=== PATIENT | male | born 1970 | race African-American/Black ===

== ENCOUNTER 2022-09-12 07:57 | Outpatient (REF) | payer MEDICAID, SELFPAY ==
[2022-09-12 08:23] LABS: MANUAL DIFF FLAG NO
[2022-09-12 09:03] LABS: Basophils Absolute Auto 0.1 X10*3/uL (0.0-0.2); Basophils Percent Auto 1.1 % (0-2); Eosinophils Absolute Auto 0.2 X10*3/uL (0.0-0.4); Eosinophils Percent Auto 2.4 % (0-4); Hematocrit 53.4 % (42.0-52.0); Hemoglobin 18.2 g/dl (14.0-18.0); Imm Gran Abs Auto 0.06 X10*3/uL (0.00-0.03); Imm Gran Pct Auto 0.6 % (0.0-0.4); Lymphocytes Absolute Auto 3.1 X10*3/uL (1.2-4.9); Lymphocytes Percent Auto 30.6 % (20-40); Mean Corpuscular HGB Conc 34.1 g/dl (31.0-36.0); Mean Corpuscular Hemoglobin 29.7 pg (27.0-33.0); Mean Corpuscular Volume 87.3 fL (80.0-98.0); Mean Platelet Volume 9.6 fL (9.4-12.4); Monocytes Absolute Auto 0.9 X10*3/uL (0.1-1.2); Monocytes Percent Auto 9.1 % (2-11); Neutrophils Absolute Auto 5.7 x10*3/uL (2.0-8.3); Neutrophils Percent Auto 56.2 % (45-73); Platelet Count 305 X10*3/uL (160-400); Red Blood Count 6.12 X10*6/uL (4.60-5.80); Red Cell Distribution Width 13.2 % (11.0-16.0); White Blood Count 10.1 X10*3/uL (4.8-10.8)
[2022-09-12 10:02] LABS: Alanine Aminotransferase 20 U/L (0-40); Albumin Level 4.6 g/dL (3.5-5.0); Alkaline Phosphatase 70 U/L (39-117); Anion Gap 14 (12-20); Aspartate Amino Transferase 14 U/L (5-37); Bilirubin Total 0.5 mg/dL (0.0-1.0); Blood Urea Nitrogen 19 mg/dL (9-16); Calcium 9.9 mg/dL (8.4-10.2); Carbon Dioxide 28 mmol/L (22-29); Chloride 102 mmol/L (96-108); Cholesterol 229 mg/dL; Estimated Glomerular Filt Rate > 60; Glucose Random 81 mg/dL (60-115); HDL Cholesterol 45 mg/dL; LDL Cholesterol Calculated 142 mg/dl; Potassium 4.5 mmol/L (3.3-5.1); Sodium 139 mmol/L (135-145); Total Protein 7.4 g/dL (6.5-8.0); Triglycerides 210 mg/dL
[2022-09-12 10:14] LABS: HBc Num1 0.11 S/CO (0.00-0.79); HBsAGNum1 0.27 S/CO (0.00-0.99); Hepatitis A Antibody IgM 0.23 Index (0-0.79); Hepatitis B Core Antibody Nonreactive (Nonreactive); Hepatitis B Surface Antigen Negative (Negative); ~HepC Num1 0.08 S/CO (0.00-0.79); ~Hepatitis A Antibody IgM Nonreactive (Nonreactive); ~Hepatitis B Surface Antibody NONREACTIVE (Nonreactive); ~Hepatitis C Antibody Nonreactive (Nonreactive)
[2022-09-12 10:20] LABS: Prostate Specific Antigen Scr 0.82 ng/mL (<0.05-4.0); Thyroid Stimulating Hormone 2.13 uIU/mL (0.32-4.0)
== END 2022-09-12 07:58 | disposition home or self-care (01) ==
LOC: HO.LAB 07:57
PROVIDERS: PCP Internal Medicine; Visit Provider Internal Medicine
DX: Z00.00 Encounter for general adult medical examination without abnormal findings (principal); Z12.5 Encounter for screening for malignant neoplasm of prostate; F11.11 Opioid abuse, in remission; F32.2 Major depressive disorder, single episode, severe without psychotic features; Z72.0 Tobacco use
CPT/HCPCS: 36415; 80053; 80061; 84153; 84443; 85025; 86704; 86706; 86709; 86803; 87340

== ENCOUNTER 2022-12-06 14:16 | Outpatient (REF) | payer MEDICAID, SELFPAY ==
[2022-12-06 15:16] LABS: MANUAL DIFF FLAG NO
[2022-12-06 16:20] LABS: Basophils Absolute Auto 0.1 X10*3/uL (0.0-0.2); Basophils Percent Auto 1.3 % (0-2); Eosinophils Absolute Auto 0.5 X10*3/uL (0.0-0.4); Eosinophils Percent Auto 4.6 % (0-4); Hematocrit 43.6 % (42.0-52.0); Hemoglobin 14.7 g/dl (14.0-18.0); Imm Gran Abs Auto 0.17 X10*3/uL (0.00-0.03); Imm Gran Pct Auto 1.6 % (0.0-0.4); Lymphocytes Absolute Auto 3.7 X10*3/uL (1.2-4.9); Lymphocytes Percent Auto 34.3 % (20-40); Mean Corpuscular HGB Conc 33.7 g/dl (31.0-36.0); Mean Corpuscular Hemoglobin 29.9 pg (27.0-33.0); Mean Corpuscular Volume 88.8 fL (80.0-98.0); Mean Platelet Volume 9.8 fL (9.4-12.4); Monocytes Absolute Auto 1.1 X10*3/uL (0.1-1.2); Monocytes Percent Auto 10.2 % (2-11); Neutrophils Absolute Auto 5.1 x10*3/uL (2.0-8.3); Platelet Count 322 X10*3/uL (160-400); Red Blood Count 4.91 X10*6/uL (4.60-5.80); Red Cell Distribution Width 13.8 % (11.0-16.0); White Blood Count 10.7 X10*3/uL (4.8-10.8)
[2022-12-06 16:48] LABS: Alanine Aminotransferase 34 U/L (0-40); Albumin Level 4.2 g/dL (3.5-5.0); Alkaline Phosphatase 75 U/L (39-117); Anion Gap 13 (12-20); Aspartate Amino Transferase 23 U/L (5-37); Bilirubin Total 0.4 mg/dL (0.0-1.0); Blood Urea Nitrogen 13 mg/dL (9-16); C Reactive Protein 5.48 mg/dL (< or = 0.50); Carbon Dioxide 31 mmol/L (22-29); Chloride 102 mmol/L (96-108); Estimated Glomerular Filt Rate > 60; Glucose Random 89 mg/dL (60-115); Potassium 4.7 mmol/L (3.3-5.1); Sodium 141 mmol/L (135-145)
== END 2022-12-06 14:17 | disposition home or self-care (01) ==
LOC: HO.LAB 14:16
PROVIDERS: PCP Internal Medicine; Visit Provider Physician Assistant
DX: R10.9 Unspecified abdominal pain (principal); K58.9 Irritable bowel syndrome, unspecified
CPT/HCPCS: 36415; 80053; 85025; 86140; 99202

== ENCOUNTER 2022-12-10 09:03 | Outpatient (REF) | payer MEDICAID, SELFPAY ==
--- NOTE | ~2022-12-10 | CT_ITS ---
EXAMINATION: CT ABDOMEN AND PELVIS WITH CONTRAST CLINICAL INFORMATION: Unspecified abdominal pain COMPARISON: None available. TECHNIQUE: Multidetector volumetric images were obtained from the superior aspect of the liver through the pubic symphysis following administration 85 mL of Omnipaque 350 intravenous contrast. Sagittal and coronal reformatted images were obtained on the technologist's workstation. Oral contrast: Yes This CT examination was performed using dose optimization techniques as appropriate, variously including the following: *Automated exposure control *Adjustment of mA and/or kV according to patient size (this includes techniques or standardized protocols for targeted exams where dose is matched to indication/reason for exam; i.e. extremities or head) *Use of iterative reconstruction technique DLP: 423 mGy-cm FINDINGS: LUNG BASES: There is platelike atelectasis right lung base. The heart size is normal. LIVER, GALLBLADDER, AND BILIARY TREE: The liver is normal in size, shape, and attenuation. No focal hepatic lesion or biliary ductal dilatation is present. The gallbladder is unremarkable with no evidence of radiopaque gallstones, gallbladder wall thickening, or obvious pericholecystic inflammatory changes. PANCREAS: Unremarkable. SPLEEN: Unremarkable. ADRENAL GLANDS: Unremarkable. KIDNEYS AND URETERS: The kidneys are normal in size, shape, and attenuation. No hydronephrosis, hydroureter, or calculi seen. No perinephric stranding. BLADDER: Unremarkable. GASTROINTESTINAL TRACT: There is scattered stool, gas and contrast seen throughout the colon without distention. The small bowel loops are normal caliber. Appendix is normal caliber. No free fluid or free air seen. ABDOMINAL WALL: No significant hernia is appreciated. LYMPH NODES: Normal. VASCULAR: Unremarkable. PELVIC VISCERA: The prostate gland is mildly enlarged with central gland calcification. No free fluid seen. OSSEOUS STRUCTURES: No aggressive lytic or sclerotic process seen. Mild degenerative disc changes L5-S1 disc levels is noted. CT/CT abdomen pelvis w IV con IMPRESSION: 1. No acute intra-abdominal process seen. 2. Mild constipation. Fleischner guidelines were followed.
[2022-12-10] MEDS: iohexoL 350 MG/ML 100 ML INFUS..BTL 85 ML IV (11:45)
== END 2022-12-10 09:04 | disposition home or self-care (01) ==
LOC: HO.CT 09:03
PROVIDERS: PCP Internal Medicine; Visit Provider Physician Assistant
DX: R10.9 Unspecified abdominal pain (principal)
CPT/HCPCS: 74177; Q9967

== ENCOUNTER → 2023-01-07 12:14 | Outpatient (BNVA) | payer MEDICAID, SELFPAY | PROVIDERS: PCP Internal Medicine; Visit Provider Physician Assistant | DX: Z12.11 Encounter for screening for malignant neoplasm of colon (principal); K21.9 Gastro-esophageal reflux disease without esophagitis; R12 Heartburn | CPT/HCPCS: 99212 ==

== ENCOUNTER 2023-05-10 14:00 | Outpatient (RCR) | payer MEDICAID, SELFPAY ==
--- NOTE | 2023-04-16 14:43 | MHC.PT.EP ---
[facility] [place] Office [place] Office [place] Office [address] Viraj Amezcua [address] [phone] F: [phone] F: [phone] F: [phone] F: [phone] Physical Therapy Plan of Care Date of Evaluation: 04/16/23 Date of Surgery: n/a Diagnosis: low back pain Assessment: Patient is a 52 year old male presenting to PT with complaints of pain in his low back. Pt reports onset of pain began 1 year ago due to insidious onset. He presents today with impairments in pain, lumbar ROM, hip strength, core strength. Pt's current occupation is none, with baseline physical activities including ADLs. Pt expresses fpc goal of reducing pain, and is motivated to work towards this in PT. Clinical presentation today is most consistent with signs and sx associated with low back pain and pt will benefit from skilled PT 2 week x 4 weeks to address the following problems and impairments noted upon evaluation: pain, lumbar ROM, hip strength, core strength. These problems limit the patient with the following functional activities: ADLs. The prescribed treatment plan of care is medically necessary. 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 Pt was educated on HEP, role of PT, prognosis, POC. Frequency and Duration: The patient will be seen 2 x week x 4 weeks Short Term Goals: Pt will demonstrate centralization of pain to low back in 2 weeks. Pt will demonstrate improved hip MMT strength by 1/3 grade in 2 weeks for improved lumbopelvic stability. Pt will demonstrate ability to move through available lumbar range with minimal pain in 2 weeks. Fpc Goals: Pt will demonstrate improved Sharon score by 10% in 4 weeks for improved functional mobility. Pt will demonstrate ability to complete ADLs with min to no pain in 4 weeks for return to PLOF. Treatment Plan: Modalities to reduce pain, spasms and effusion. Manual therapy to restore motion and function. Therapeutic exercise to improve strength and flexibility. Neuromuscular re-education for posture and balance. Therapeutic activities to return to functional activities of daily living. Electronically signed by: Trena Landrum, PT, DPT, ATC Please sign and return to therapist. Thank you for your referral.
--- NOTE | 2023-05-24 14:19 | MHC.PT.DC ---
[facility] [place] Office [place] Office [place] Office [address] Ame[address]ua [address] [phone] F: [phone] F: [phone] F: [phone] F: [phone] Physical Therapy Discharge Report Diagnosis: low back pain Date of Surgery: n/a Date of Evaluation: 04/16/23 Date of Discharge: 05/24/23 Treatments to Date: 3 Cancellations to Date: 2 No Shows to Date: 3 Discharge Status: Visit Non-compliance Discharge Summary: Pt has failed to comply with [facility] attendance policy and no showed 3 appointments since start of care. Pt to be d/c per policy. Electronically signed by: Trena Landrum PT, DPT, ATC Please sign and return to therapist. Thank you for your referral.
== END 2023-05-24 14:19 | disposition home or self-care (01) ==
LOC: HO.PTCHIC 14:00
PROVIDERS: PCP Internal Medicine; Visit Provider Internal Medicine
DX: M54.50 Low back pain, unspecified (principal)
CPT/HCPCS: 97110; 97140; 97161

== ENCOUNTER 2023-05-29 08:38 | Outpatient (REF) | payer MEDICAID, SELFPAY ==
[2023-05-29 10:14] LABS: Rheumatoid Factor < 13.0 IU/mL (<15.0)
[2023-05-29 10:17] LABS: Cholesterol 173 mg/dL (<200); HDL Cholesterol 38 mg/dL (>40); LDL Cholesterol Calculated 112 mg/dL (<100); Triglycerides 116 mg/dL (<150)
[2023-05-29 10:37] LABS: Erythrocyte Sedimentation Rate 2 MM/HR (0-15)
[2023-05-30 18:18] LABS: CRP High Sensitivity 2.3 mg/L
[2023-06-02 10:38] LABS: Anti Nuclear Antibody Screen NEGATIVE (NEGATIVE)
== END 2023-05-29 08:39 | disposition home or self-care (01) ==
LOC: HO.LAB 08:38
PROVIDERS: PCP Internal Medicine; Visit Provider Internal Medicine
DX: E78.00 Pure hypercholesterolemia, unspecified (principal); F17.211 Nicotine dependence, cigarettes, in remission; M26.621 Arthralgia of right temporomandibular joint; R30.0 Dysuria; R79.82 Elevated C-reactive protein (CRP)
CPT/HCPCS: 36415; 80061; 85652; 86038; 86141; 86431

== ENCOUNTER 2023-06-19 10:47 | Day surgery (SDC) | payer MEDICAID, SELFPAY ==
[2023-06-17 15:49] VITALS: BMI 33.5
--- NOTE | 2023-06-18 10:16 | P.CONAN_ITS ---
Documented by User: Deidra Solares NP 06/18/23 10:16 HPI - Anesthesia Eval Consult details Narrative: 52yo M for Upper Endoscopy and Colonoscopy PMFSH Active Problems Active Problems: All Active Problems (Updated 01/07/23 @ 12:43 by Sepideh Hess PA-C) Acid reflux (Acute) Waterbrash symptom (Acute) Abdominal pain (Acute) Encounter for screening colonoscopy (Acute) Surgical History Surgical History History of facial surgery Social History Social History Household Members: Spouse Alcohol intake: never Patient Tobacco Use Status: Former Tobacco user Meds Allergies Allergy/AdvReac Type Severity Reaction Status Date / Time diphenhydramine Allergy Severe Chest Pain Verified 01/07/23 12:17 [From [facility]] Home Medications Medication Instructions Recorded Confirmed Last Taken Type bupropion HCl 150 mg tablet,12 hr 150 mg PO DAILY 12/06/22 01/07/23 Unknown History sustained-release (Wellbutrin SR) sertraline 25 mg tablet (Zoloft) 25 mg PO DAILY 12/06/22 01/07/23 Unknown History trazodone 100 mg tablet 100 mg PO DAILY 12/06/22 01/07/23 Unknown History Exam Height,Weight and Vital Signs: Height 5 ft 4 in Weight 88.451 kg Assessment and Plan Assessment Anesthesia Assessment: Chart Reviewed Documented by User: Holger Reeder MD 06/19/23 09:25 PMFSH Family History Family history of problems with anesthesia: No Surgical History Surgical History History of facial surgery History of Problems with Anesthesia: No Social History Social History Household Members: Spouse Alcohol intake: never Patient Tobacco Use Status: Former Tobacco user Meds Allergies Allergy/AdvReac Type Severity Reaction Status Date / Time diphenhydramine Allergy Severe Chest Pain Verified 01/07/23 12:17 [From [facility]] Home Medications Medication Instructions Recorded Confirmed Last Taken Type bupropion HCl 150 mg tablet,12 hr 150 mg PO DAILY 12/06/22 01/07/23 Unknown History sustained-release (Wellbutrin SR) sertraline 25 mg tablet (Zoloft) 25 mg PO DAILY 12/06/22 01/07/23 Unknown History trazodone 100 mg tablet 100 mg PO DAILY 12/06/22 01/07/23 Unknown History Exam Airway Mallampati Class: II TM Dist: >3cm Neck ROM: Full Partial: Upper Assessment and Plan Assessment Anesthesia Assessment: Anesthesia Plan Discussed Final Anesthetic Review Family History of Problems with Anesthesia: No History of Problems with Anesthesia: No NPO: Yes ASA Class: II Final Preanesthetic Review: No Changes in Pt Med Stat, Meds/Allgs Chart Reviewed, Consent Obtained/Reviewed and Anes Risks/Benef Reviewed Patient Risk: Low Procedure Risk: Low Anesthetic Plan Anesthetic Plan: MAC: Disposition: Standard PACU
--- NOTE | 2023-06-19 10:27 | PC.NURSE ---
Patient did not arrive for procedure. Calls placed, no answer
[2023-06-19 11:36] VITALS: BMI 33.4
[2023-06-19 11:40] VITALS: BMI 33.4
[2023-06-19 11:50] VITALS: BP 116/59; PULSE 60; RESP 18; TEMP 36.4; O2SAT 95
[2023-06-19] MEDS: Lactated Ringers 1,000 ML 100 ML IVCONT (11:55)
--- NOTE | 2023-06-19 12:18 | HO.ANESPROP2 ---
PMFSH Active Problems Active Problems: All Active Problems (Updated 01/07/23 @ 12:43 by Sepideh Hess PA-C) Acid reflux (Acute) Waterbrash symptom (Acute) Abdominal pain (Acute) Encounter for screening colonoscopy (Acute) Family History Family history of problems with anesthesia: No Surgical History Surgical History History of facial surgery History of Problems with Anesthesia: No Social History Social History Household Members: Spouse Alcohol intake: never Patient Tobacco Use Status: Current everyday Tobacco user Tobacco use type: Cigarette Smoked in Last 30 Days: Yes Patient Interested in Nicotine Replacement: No Patient Given Instructions on How to Stop Smoking: No Use of substances other than those prescribed or required for medical reasons: Yes Substance Use Frequency: Monthly Are you DNR?: No Advance Directives: No Advance Directives Information Provided: Yes Meds Allergies Allergy/AdvReac Type Severity Reaction Status Date / Time diphenhydramine Allergy Severe Chest Pain Verified 01/07/23 12:17 [From [facility]] Active Medications: Current Medications Lactated Ringer's (Lr) 1,000 mls @ 100 mls/hr IVCONT .Q10H RAFI Last Admin: 06/19/23 11:55 Dose: 100 mls/hr Home Medications Medication Instructions Recorded Confirmed Last Taken Type bupropion HCl 150 mg tablet,12 hr 150 mg PO DAILY 12/06/22 01/07/23 Unknown History sustained-release (Wellbutrin SR) sertraline 25 mg tablet (Zoloft) 25 mg PO DAILY 12/06/22 01/07/23 Unknown History trazodone 100 mg tablet 100 mg PO DAILY 12/06/22 01/07/23 Unknown History Exam Height,Weight and Vital Signs: Height 5 ft 4 in Weight 88.36 kg Last Vital Signs Temp 97.6 F 06/19/23 11:50 Pulse 60 06/19/23 11:50 Resp 18 06/19/23 11:50 BP 116/59 L 06/19/23 11:50 Pulse Ox 95 06/19/23 11:50 O2 Del Method Room Air 06/19/23 11:50 Airway Mallampati Class: III TM Dist: >3cm Neck ROM: Full Assessment and Plan Assessment Anesthesia Assessment: Anesthesia Plan Discussed and Chart Reviewed Final Anesthetic Review Family History of Problems with Anesthesia: No History of Problems with Anesthesia: No NPO: Yes ASA Class: II and III Final Preanesthetic Review: No Changes in Pt Med Stat, Meds/Allgs Chart Reviewed, Consent Obtained/Reviewed and Anes Risks/Benef Reviewed Patient Risk: Low Procedure Risk: Low Anesthetic Plan Anesthetic Plan: MAC: Disposition: Standard PACU
--- NOTE | 2023-06-19 12:52 | MHC.SHP ---
Pre-Procedural Eval Section A Date of Service: 06/19/23 Section B Chief Complaint: Gastro-esophageal reflux disease without esophagit Details of Present Illness: colon screening Relevant Family History (Specify if Yes): No Relevant Social History: Tobacco Use Present Medications: see Short Stay Collaborative assessment Medical History: Significant History (gerd, ) History of Previous Operations: Relevant previous surgery/procedure and date(s) (History of facial surgery) Allergies: Allergies Allergy/AdvReac Type Severity Reaction Status Date / Time diphenhydramine Allergy Severe Chest Pain Verified 01/07/23 12:17 [From [facility]] Review of Systems Sugical H&P ROS: Negative: Constitution, Cardiovascular, Respiratory, Neurological, Psychiatric, Hem-Onc, Allergic/Immunologic, Gastrointestinal, Genitourinary, Musculoskeletal, Integumentary, Endocrine and Eyes/Ears/Nose/Throat Exam Surgical H&P Exam: Normal: HEENT, Normal: Heart, Normal: Lungs, Normal: Extremities, Normal: Abdomen, Normal: Skin and Normal: Neurological Plan Diagnosis/Plan: Unchanged I have reviewed the history and physical and performed a pertinent physical examination on my patient. No changes have occurred unless specified. Time Spent With Patient Time: Total time managing care of this patient today ____ minutes.
--- NOTE | 2023-06-19 12:54 | P.OP_ITS ---
Operative Note Operative Note Date of Service: 06/19/23 Narrative: Operative Information Procedure Description: EGD, Colonoscopy Indication: screening and GERD Anesthesia: MAC FLEXIBLE TRANSORAL UPPER GASTROINTESTINAL ENDOSCOPY AND COLONOSCOPY PROCEDURE NOTE UPPER ENDOSCOPY Consent: Indications for the procedure and potential complications of bleeding, perforation, reaction to medications and missed diagnosis were discussed with the patient and informed consent was obtained. Instrument: Olympus GIF H 190 J mid size upper endoscope Monitoring: Vital signs and clinical assessment, continuous EKG monitoring, Pulse oximetry, Carbon Dioxide monitoring and blood pressure monitoring were done throughout the procedure. Procedure: The patient was placed in the left lateral decubitis position and pre-procedure medications were administered and a bite block was placed. The endoscope was inserted into the mouth and advanced under direct vision to the third part of duodenum. A careful inspection was made as the upper endoscope was withdrawn including a retroflexed examination of the proximal stomach; Findings and interventions are described below. Findings: Larynx:normal Esophagus: GE junction at 36 cm, diaphragm hiatus at 38 cm, small sliding hiatal hernia 2 cm noted, bx taken from GEJ, distal and proximal esophagus Stomach: Patchy erythema. Biopsies were obtained. Grade 2 flap valve on retroflexed examination of the cardia. Duodenum: Normal bulb and descending duodenum, Intervention: Biopsies as noted above COLONOSCOPY Instrument: Olympus variable stiffness pediatric scope 190L Colonoscopy Monitoring: Vital signs and clinical assessment, continuous EKG monitoring, Pulse oximetry, Carbon Dioxide monitoring and blood pressure monitoring were done throughout the procedure. Colon withdrawal time was 12 minutes. Procedure: The patient was placed in the left lateral decubitis position and pre-procedure medications were administered. After a digital rectal examination of the ano-rectum, the video colonoscope was inserted into the rectum and advanced through the colon to the cecum/TI. The colonoscope was slowly withdrawn in a retrograde panoramic fashion and the colon mucosa was carefully examined including a retroflexed view of the rectum. Findings and interventions are described below. Procedure Difficulty:moderate Findings: Terminal Ileum-not intubated Cecum:normal Ascending Colon: normal Transverse Colon - x 2 sessile polyps 10-12 mm removed with cold snare Descending Colon:normal Sigmoid Colon: normal Rectum: Retroflexion with small internal hemorrhoids, grade I Anorectum - normal Colon preparation: [place] Bowel Preparation Scale Right colon; 1-2 Transverse colon: 2 Left colon; 2 (0 = Unprepared colon segment with mucosa not seen due to solid stool that cannot be cleared. 1 = Portion of mucosa of the colon segment seen, but other areas of the colon segment not well seen due to staining, residual stool and/or opaque liquid. 2 = Minor amount of residual staining, small fragments of stool and/or opaque liquid, but mucosa of colon segment seen well. 3 = Entire mucosa of colon segment seen well with no residual staining, small fragments of stool or opaque liquid) Impression and Post Procedure Diagnosis: Endoscopy Findings: gastritis small hiatal hernia Colonoscopy Findings: polyps internal hemorrhoids Plan: Await Pathology results Repeat Colonoscopy in 1-2 years due to polyps and fair prep in some areas or earlier if clinically indicated High fiber diet leaflet avoid straining at stool, epsom salts and sitz bath, anusol supps or cream smoking cessation and gerd precautions Above findings were reviewed with the patient and relevant handouts were provided if indicated.
[2023-06-19 13:53] VITALS: BP 114/70; PULSE 69; RESP 16; TEMP 36.4; O2SAT 97
[2023-06-19 14:08] VITALS: BP 134/83; PULSE 59; RESP 16; TEMP 36.4; O2SAT 99
[2023-06-19 14:23] VITALS: BP 128/84; PULSE 60; RESP 18; TEMP 36.4; O2SAT 99
== END 2023-06-19 15:00 | disposition home or self-care (01) ==
PROVIDERS: PCP Internal Medicine; Visit Provider Internal Medicine Gastroenterology
PROC: (CPT 43239; principal; 2023-06-19 10:00)
DX: K29.70 Gastritis, unspecified, without bleeding (principal); K44.9 Diaphragmatic hernia without obstruction or gangrene; K21.9 Gastro-esophageal reflux disease without esophagitis; R10.32 Left lower quadrant pain; Z12.11 Encounter for screening for malignant neoplasm of colon; D12.3 Benign neoplasm of transverse colon; K64.0 First degree hemorrhoids; F17.210 Nicotine dependence, cigarettes, uncomplicated; Z79.899 Other long term (current) drug therapy
CPT/HCPCS: 43239; 45385; 88305; 88342; J2704

== ENCOUNTER → 2023-06-19 10:47 | Outpatient (BNV) | payer MEDICAID, SELFPAY | PROVIDERS: PCP Internal Medicine; Visit Provider Internal Medicine Gastroenterology | DX: Z12.11 Encounter for screening for malignant neoplasm of colon (principal); K21.9 Gastro-esophageal reflux disease without esophagitis; K29.70 Gastritis, unspecified, without bleeding; D12.3 Benign neoplasm of transverse colon; K64.0 First degree hemorrhoids | CPT/HCPCS: 43239; 45385 ==

== ENCOUNTER 2023-06-24 12:48 | Outpatient (AMB) | payer MEDICAID, SELFPAY ==
--- NOTE | 2023-06-24 12:56 | MHC.OFFVIS ---
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 Denies any past or recent trauma, injury or falls. 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 His back pain is localized to the lower spine and sacral regions with radiation into his right posterior thigh and calf with intermittent tingling and numbness. Denies any weakness, bladder or bowel dysfunction or saddle anesthesia. Patient denies previous spine surgery or injections but is interested to undergo interventional treatments to alleviate his radicular back pain. Abdominal CT scan on 12/10/22 showed mild degenerative disc changes L5-S1 disc levels. His PCP provider ordered lumbar spine MRI but this has not been scheduled yet. Pain affects his daily activities, functioning, sleep, social activities, mood and quality of life. He rates his pain at 8/10. Location Low back pain, right hip that radiates down right leg Duration Chronic pain >1 year due to heavy lifting work in [place] Characteristics of symptom or complaint Aching, throbbing, shooting, sharp, radiating, numbness, tingling Aggravating or associated factors Movements, bending, twisting, lifting, prolonged walking or standing Relieving factors Tylenol, NSAIDs, (Naprosyn, Motrin, diclofenac) hot shower, sitting Treatment PT- made pain worse [facility] Medical History (Updated 06/24/23 @ 20:21 by MARIAM Valenzuela) Essential hypertension Restless leg syndrome High cholesterol Chronic low back pain Depression Sleep apnea Acid reflux Surgical History History of facial surgery Social History (Updated 06/24/23 @ 20:26 by MARIAM Valenzuela) Household Members: Spouse Alcohol intake: never Patient Tobacco Use Status: Current everyday Tobacco user Tobacco use type: Cigarette Substance Use Type: Former Substance User and Heroin Review of Systems Const All systems reviewed & are unremarkable except as noted in HPI and below Reports as per HPI, Denies body aches, Denies chills, Reports difficulty sleeping, Denies fatigue, Denies fever(s), Denies frequent falls, Denies malaise, Reports snoring, Denies weakness and Denies weight loss Resp Reports snoring Neuro Denies frequent falls and Denies weakness Endo Denies fatigue Physical Exam Vital Signs: Last Vital Signs Pulse 70 06/24/23 13:03 BP 130/78 06/24/23 13:03 Pulse Ox 98 06/24/23 13:03 Oxygen Delivery Method Room Air 06/24/23 13:03 BMI result Body Mass Index 34.3 General: Appears afebrile. Alert and oriented. Mood and affect appropriate. Follows and participates in conversation appropriately. Respiratory effort is unlabored. No cough. Able to transition from sit to stand unassisted. Ambulates with bilaterally normal heel strike and toe off. Back/Spine/Pelvis Other: Patient is able to walk and stand on heels and tip toes with no difficulties demonstrating good motor tone. No limping. Can flex forward to 65-75 degrees and extend to 5-10 degrees before experiencing lumbar pain. Demonstrates 5/5 strength of quadriceps bilaterally as well as flexion/dorsiflexion of bilateral feet against resistance. 2+ pedal pulses bilaterally. Seated straight leg rise with dorsiflexion negative bilaterally. +2 patellar and +1 achilles reflexes bilaterally. Facet loading test positive bilaterally. Mike?s, [place], Pelvic compression and Stinchfield tests reproduce right lateral hip pain, but not low back or buttock pain. Mild groin pain with internal hip rotations on the right. Valsalva maneuver negative. Cervical Spine: cervical ROM normal, cervical muscular tenderness and No Cervical spine tenderness Thoracic/Lumbar Spine: thoracic and lumbar spine normal to inspection, No Thoracic/lumbar spine scar(s), Lasegue's sign negative, straight leg raise negative bilaterally, pain with thoraco-lumbar ROM, paraspinal muscle tenderness, No thoracic spinal tenderness and lumbar spinal tenderness (L4-S1) Pelvis: buttock tenderness on the right Sacroiliac joints: on the right tender to palpation and on the left nontender Skin General skin exam: scars (right face) Extrem General: Yes capillary refill normal, Yes no clubbing, cyanosis or edema and Yes no calf tenderness Results Reviewed Results Reviewed: CT scan abdomen pelvis w IV con on 12/10/22 OSSEOUS STRUCTURES: No aggressive lytic or sclerotic process seen. Mild degenerative disc changes L5-S1 disc levels is noted. Assessment & Plan Assessment & Plan (1) Lumbar spondylosis: Code(s): M47.816 - Spondylosis without myelopathy or radiculopathy, lumbar region (2) Right hip pain: Code(s): M25.551 - Pain in right hip (3) Lumbar radiculopathy: Code(s): M54.16 - Radiculopathy, lumbar region (4) Chronic low back pain: Code(s): M54.50 - Low back pain, unspecified; G89.29 - Other chronic pain (5) Light cigarette smoker (1-9 cigarettes per day): Code(s): F17.210 - Nicotine dependence, cigarettes, uncomplicated Plan Lumbar spine and right hip imaging to assess degree of degenerative changes, any subluxation, listhesis, compression fractures or pars defects. Pending lumbar spine MRI. Patient has tried NSAIDs, Tylenol, physical therapy, heat therapy with continued symptoms. Patient will return to the clinic to discuss results of the MRI/xray findings when it is done and consider interventional therapy as indicated. Scripts provided for meloxicam prn and gabapentin at bedtime. Side effects and precautions were discussed with patient. Patient is aware not to take other NSAIDs while taking meloxicam, and take it with food and full glass of water. Patient is aware to call if pain worsens or if he develops any red flag symptoms to seek emergency care. Patient denies any cauda equina syndrome symptoms at this time. All questions were answered and the patient is in agreement with the treatment plan. Follow up to review imaging and sooner if needed. Orders: Orders XR lumbar spine 6V w bending Today M47.816 - Spondylosis without myelopathy or radiculopathy, lumbar region XR hip RT w PEL1V Today M25.551 - Pain in right hip, M47.816 - Spondylosis without myelopathy or radiculopathy, lumbar region Medications: New meloxicam Take it with food and full glass of water. Avoid other NSAIDs. 15 mg PO DAILY 30 days PRN 30 tabs 0RF pain M25.551 - Pain in right hip, M47.816 - Spondylosis without myelopathy or radiculopathy, lumbar region, M54.16 - Radiculopathy, lumbar region gabapentin 300 mg PO BEDTIME 30 caps 0RF pain M25.551 - Pain in right hip, M47.816 - Spondylosis without myelopathy or radiculopathy, lumbar region, M54.16 - Radiculopathy, lumbar region Coding Level of Care Code New Pt Level 4 (03431) Diagnoses Lumbar spondylosis M47.816 Right hip pain M25.551 Lumbar radiculopathy M54.16 Chronic low back pain M54.50; G89.29 Light cigarette smoker (1-9 cigarettes per day) F17.210
[2023-06-24 13:03] VITALS: BP 130/78; PULSE 70; O2SAT 98; BMI 34.3
== END 2023-06-24 13:20 | disposition home or self-care (01) ==
PROVIDERS: PCP Internal Medicine; Referring Provider Internal Medicine; Visit Provider Nurse Practitioner Family
DX: M47.816 Spondylosis without myelopathy or radiculopathy, lumbar region (principal); M25.551 Pain in right hip; M54.16 Radiculopathy, lumbar region; M54.50 Low back pain, unspecified; G89.29 Other chronic pain; F17.210 Nicotine dependence, cigarettes, uncomplicated
CPT/HCPCS: 99204

== ENCOUNTER 2023-06-24 12:48 | Outpatient (REF) | payer MEDICAID, SELFPAY ==
--- NOTE | ~2023-06-24 | XR_ITS ---
EXAMINATION: XR LUMBOSACRAL SPINE WITH OBLIQUES CLINICAL INFORMATION: Spondylosis without myelopathy radiculopathy COMPARISON: None available. TECHNIQUE: 7 views of the lumbar spine FINDINGS: 5 nonrib-bearing lumbar-type vertebral bodies. No acute visible fracture or dislocation. Very mild multilevel degenerative changes with osteophyte formation lumbar spine facet arthropathy. Vertebral body heights and disc spaces are otherwise maintained. Posterior elements are intact. Paraspinal soft tissues are unremarkable. Punctate radiodensity adjacent to the right L1 transverse process nonspecific. XR/XR lumbar spine 6V w bending IMPRESSION: 1. No acute visible fracture or dislocation. 2. Very mild multilevel degenerative changes.
--- NOTE | ~2023-06-24 | XR_ITS ---
EXAMINATION: XR HIP, RIGHT CLINICAL INFORMATION: Pain COMPARISON: None available. TECHNIQUE: Two views of the right hip. Single view the pelvis FINDINGS: No acute visible fracture or dislocation. Enthesopathy along the left lesser trochanter. Joint space and alignment are otherwise maintained. Soft tissues are unremarkable XR/XR hip RT w PEL1V IMPRESSION: 1. No acute visible fracture or dislocation. 2. Enthesopathy along the left lesser trochanter.
== END 2023-06-24 12:49 | disposition home or self-care (01) ==
LOC: HO.XRAY 12:48
PROVIDERS: PCP Internal Medicine; Referring Provider Internal Medicine; Visit Provider Nurse Practitioner Family
DX: M47.816 Spondylosis without myelopathy or radiculopathy, lumbar region (principal); M25.551 Pain in right hip; M54.16 Radiculopathy, lumbar region; M54.50 Low back pain, unspecified
CPT/HCPCS: 72114; 73502; 99212

== ENCOUNTER 2023-07-03 08:22 | Outpatient (AMB) | payer MEDICAID, SELFPAY ==
--- NOTE | 2023-07-03 08:25 | A.OFFVIS_ITS ---
Intake Vital Signs 07/03/23 08:30 Height 5 ft 4 in Weight 196 lb 3.382 oz BMI 33.7 BP 135/71 Blood Pressure Location Lt brachial Position Sitting Pulse 69 Intake Visit Reasons: s/p colon Intake Note: [place] presents in the office as a follow up colonoscopy. CC: He states that he is not having any concerns since his procedure. Allergies diphenhydramine [From Benadryl] Allergy (Severe, Verified 01/07/23 12:17) Chest Pain Medication List - Last Reconciled 07/03/23 by Sepideh Hess PA-C atorvastatin 40 mg PO BEDTIME bupropion HCl 150 mg PO QAM buspirone 7.5 mg PO BID gabapentin 300 mg PO BEDTIME hydroxyzine HCl 50 - 100 mg PO BEDTIME meloxicam 15 mg PO DAILY PRN 30 days omeprazole 20 mg PO DAILY ropinirole 3 mg PO BEDTIME sertraline (Zoloft) 25 mg PO DAILY sertraline 200 mg PO QAM HPI HPI Comments History of Present Illness Details A 52 y/o male f/u after EGD colonoscopy- he has acid reflux- omeprazole 20 mg QD- he is a smoker 1ppd, also drinks 3 coffees a day His does say that he smokes a lot during the day as well as drinks coffee, he agreed to her statement He otherwise has no GI issues he has normal bowel pattern Reviewed procedure report, pathology and recommendations He is here today with his , who helps interpret with him No nausea, vomiting hematemesis, hematochezia fever chills PFSH Medical History Essential hypertension Restless leg syndrome High cholesterol Chronic low back pain Depression Sleep apnea Acid reflux Surgical History Hx of colonoscopy History of esophagogastroduodenoscopy (EGD) History of facial surgery Social History Household Members: Spouse Alcohol intake: never Patient Tobacco Use Status: Current everyday Tobacco user Tobacco use type: Cigarette Substance Use Type: Former Substance User and Heroin Review of Systems Const All systems reviewed & are unremarkable except as noted in HPI and below Card Denies chest pain and Denies dyspnea Resp Denies dyspnea GI Denies abdominal pain, Denies change in bowel habits and Reports heartburn Physical Exam Vital Signs: Last Vital Signs Pulse 69 07/03/23 08:30 BP 135/71 07/03/23 08:30 BMI result Body Mass Index 33.7 Const General: cooperative, healthy appearing, comfortable and no acute distress Nutritional Appearance: overweight Orientation/consciousness: patient oriented x3 Limitations: language barrier Resp Effort & Inspection: normal respiratory effort and able to speak in complete sentences Neuro General: patient oriented x3 Results Reviewed Results Reviewed: Findings: Terminal Ileum-not intubated Cecum:normal Ascending Colon: normal Transverse Colon - x 2 sessile polyps 10-12 mm removed with cold snare Descending Colon:normal Sigmoid Colon: normal Rectum: Retroflexion with small internal hemorrhoids, grade I Anorectum - normal Colon preparation: [place] Bowel Preparation Scale Right colon; 1-2 Transverse colon: 2 Left colon; 2 (0 = Unprepared colon segment with mucosa not seen due to solid stool that cannot be cleared. Name: [place] Arnett Age/Sex: 52/M Attending: Azael Baez MD : 1970 Submitted by: Azael Baez MD Copies to: Elisa Ryan MD MR #: [id number] Status: [facility] Collected: 06/19/23 Location: [facility] Received: 06/19/23 Diagnosis A. Stomach, biopsy: Antral-type and oxyntic mucosa with mild chronic inactive inflammation; no Helicobacter organisms seen. B. GE junction, biopsy: - Cardiac-type mucosa with moderate chronic inactive inflammation; no intestinal metaplasia seen. - Squamous mucosa within normal limits. C. Esophagus, distal, biopsy: Squamous epithelium within normal limits; no inflammation seen. D. Esophagus, proximal, biopsy: Squamous epithelium within normal limits; no inflammation seen. E. Colon, transverse, polypectomy: Fragments of tubular adenoma; negative for high-grade dysplasia or carcinoma Endoscopy Findings: gastritis small hiatal hernia Colonoscopy Findings: polyps internal hemorrhoids Plan: Await Pathology results Repeat Colonoscopy in 1-2 years due to polyps and fair prep in some areas or earlier if clinically indicated High fiber diet leaflet avoid straining at stool, epsom salts and sitz bath, anusol supps or cream smoking cessation and gerd precautions Above findings were reviewed with the patient and relevant handouts were provided if indicated. Assessment & Plan Assessment & Plan (1) Hiatal hernia: Code(s): K44.9 - Diaphragmatic hernia without obstruction or gangrene Plan: Reviewed (2) Tubular adenoma: Code(s): D36.9 - Benign neoplasm, unspecified site Plan: Repeat Colonoscopy in 1-2 years due to polyps and fair prep in some areas or earlier if clinically indicated All first-degree relatives begin screening at age 40 (3) Hemorrhoids: Code(s): K64.9 - Unspecified hemorrhoids Plan: High fiber diet leaflet avoid straining at stool, epsom salts and sitz bath, anusol supps or cream (4) Acid reflux: Comment: He is overweight, a smoker as well as fair amount of caffeine daily-certainly contribute to his symptoms Again reviewed procedure report pathology in recommendation Code(s): K21.9 - Gastro-esophageal reflux disease without esophagitis Plan: Reflux precautions reviewed, reinforce lifestyle change Plan Repeat Colonoscopy in 1-2 years due to polyps and fair prep in some areas or earlier if clinically indicated AFDR begin screening at age 40 High fiber diet leaflet avoid straining at stool, epsom salts and sitz bath, anusol supps or cream ENCOURAGED smoking cessation decrease caffiene- Reviewed in detail gerd precautions Call with concerns Medications: Changed From omeprazole 20 mg PO DAILY 30 caps 5RF To omeprazole 40 mg (2 x 20 mg) PO DAILY 30 days 60 caps 3RF Patient Instructions: Repeat Colonoscopy in 1-2 years due to polyps and fair prep in some areas or earlier if clinically indicated High fiber diet leaflet avoid straining at stool, epsom salts and sitz bath, anusol supps or cream smoking cessation and gerd precautions -clearly indicated lifestyle dietary modifications would be beneficial Will give trial of omeprazole 40 mg however hope to reduce dose at next visit Encouraged to call questions or concerns Coding Level of Care Code Est Pt Level 3 (95525) Diagnoses Hiatal hernia K44.9 Tubular adenoma D36.9 Hemorrhoids K64.9 Acid reflux K21.9 Time 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
[2023-07-03 08:30] VITALS: BP 135/71; PULSE 69; BMI 33.7
== END 2023-07-03 09:19 | disposition home or self-care (01) ==
PROVIDERS: PCP Internal Medicine; Visit Provider Physician Assistant
DX: K44.9 Diaphragmatic hernia without obstruction or gangrene (principal); D36.9 Benign neoplasm, unspecified site; K64.9 Unspecified hemorrhoids; K21.9 Gastro-esophageal reflux disease without esophagitis
CPT/HCPCS: 99213

== ENCOUNTER → 2023-07-03 08:22 | Outpatient (BNVA) | payer MEDICAID, SELFPAY | PROVIDERS: PCP Internal Medicine; Visit Provider Physician Assistant | DX: K44.9 Diaphragmatic hernia without obstruction or gangrene (principal); K64.9 Unspecified hemorrhoids; K21.9 Gastro-esophageal reflux disease without esophagitis; D36.9 Benign neoplasm, unspecified site | CPT/HCPCS: 99212 ==

== ENCOUNTER 2024-09-17 11:47 | Outpatient (REF) | payer MEDICAID, SELFPAY ==
[2024-09-17 13:34] LABS: Alanine Aminotransferase 24 U/L (0-40); Albumin Level 4.4 g/dL (3.5-5.0); Alkaline Phosphatase 94 U/L (39-117); Anion Gap 9 (12-20); Aspartate Amino Transferase 26 U/L (5-37); Bilirubin Total 0.3 mg/dL (0.0-1.0); Blood Urea Nitrogen 15 mg/dL (9-16); Calcium 9.2 mg/dL (8.4-10.2); Carbon Dioxide 28 mmol/L (22-29); Chloride 107 mmol/L (96-108); Cholesterol 150 mg/dL (<200); Estimated Glomerular Filt Rate > 60; Glucose Random 93 mg/dL (60-115); HDL Cholesterol 39 mg/dL (>40); LDL Cholesterol Calculated 85 mg/dL (<100); Potassium 4.4 mmol/L (3.3-5.1); Sodium 140 mmol/L (135-145); Triglycerides 130 mg/dL (<150)
[2024-09-17 13:47] LABS: Prostate Specific Antigen Scr 0.33 ng/mL (<0.05-4.0)
[2024-09-17 13:54] LABS: Ferritin 72 ng/mL (20-250); TSH reflex Free T4 3.42 uIU/mL (0.32-4.0)
== END 2024-09-17 11:48 | disposition home or self-care (01) ==
LOC: HO.10HDL 11:47
PROVIDERS: Visit Provider Internal Medicine
DX: E78.00 Pure hypercholesterolemia, unspecified (principal); G25.81 Restless legs syndrome; G25.0 Essential tremor; R63.4 Abnormal weight loss; Z72.0 Tobacco use
CPT/HCPCS: 36415; 80053; 80061; 82728; 84153; 84443

== ENCOUNTER 2024-12-22 12:46 | Outpatient (AMB) | payer MEDICAID, SELFPAY ==
--- NOTE | 2024-12-22 12:52 | A.OFFVIS_ITS ---
Vital Signs 12/22/24 13:03 12/22/24 13:41 Height 5 ft 4 in Weight 180 lb 184 lb 8 oz BMI 30.9 BP 113/57 L Blood Pressure Location Lt brachial Position Sitting Pulse 64 Pulse Oximetry (%) 97 Oxygen Delivery Method Room Air Intake Visit Reasons: follow up colo recall/Sepideh [facility] 06/2023 Intake Note: Patient Complex follow up for pre colonoscopy/[facility] 07/03/2023 for acid reflux and last Colonoscopy/EGD on 06/19/[address] Baez with 1 or 2 yrs Colonoscopy recall. Patient cc: abdominal pain with bloating, acid reflux with burning sensation, diarrhea on and off. Denies any other GI issues for today visit. 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 Name: [facility] Accompanied by: Spouse Allergies diphenhydramine [From Benadryl] Allergy (Severe, Verified 12/22/24 12:52) Chest Pain Medication List - Last Reconciled 12/22/24 by Elyssa Mcclendon CNP atorvastatin 40 mg PO BEDTIME bisacodyl 5 mg PO ONCE 1 day bupropion HCl XL 150 mg PO QAM buspirone 7.5 mg PO BID gabapentin 300 mg PO BEDTIME hydroxyzine HCl 50 - 100 mg PO BEDTIME losartan 50 mg PO DAILY meloxicam 15 mg PO DAILY PRN 30 days omeprazole 40 mg (2 x 20 mg) PO DAILY 30 days omeprazole 40 mg PO DAILY polyethylene glycol 3350 (Miralax) 238 grams PO ONCE ropinirole 3 mg PO BEDTIME sertraline 200 mg PO QAM HPI HPI follow up colo recall/[facility]ide[facility] 06/2023: Details: Patient is a 54-year-old male with PMH of chronic low back pain, nicotine dependence, hypertension, sleep apnea, depression, acid reflux and history of head/neck cancer . Last visit with ABELINO Murphy 01/07/2023 for follow-up after double endoscopy. Patient is accompanied by . he reports abdominal pain occurring three times a week, described as a central discomfort often traveling to the middle of the abdomen. he suspect pain may be related to a questionable hernia based on discussion with his PCP. he reports one episode of vomiting last month, denies hematemesis. States heartburn occurs daily. He uses omeprazole 20 mg daily taken with food. He denies any associated weight loss though his weight fluctuates between the 180s and 190s range. [place] reports daily bowel movements without difficulty. He denies constipation or diarrhea Patient denies: fever/chills, appetite changes, regurgitation, dysphasia, unintentional wt loss or melena/hematochezia. SOCIAL HISTORY - Diet: Noted to consume three cups of coffee daily - Alcohol/Tobacco/Drug Use: Smokes 1 ppd, drinks socially, uses marijuana. 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 -tolerated anesthesia in the past without difficulty. [facility] Medical History (Updated 12/22/24 @ 14:04 by Elyssa Mcclendon CNP) Diastasis recti Colon cancer screening Essential hypertension Restless leg syndrome High cholesterol Chronic low back pain Depression Sleep apnea Acid reflux Surgical History Hx of colonoscopy History of esophagogastroduodenoscopy (EGD) History of facial surgery Social History Household Members: Spouse Alcohol intake: never Patient Tobacco Use Status: Current everyday Tobacco user Tobacco use type: Cigarette Substance Use Type: Former Substance User and Heroin Review of Systems Const Reports as per HPI ENT Reports as per HPI Card Reports as per HPI Resp Reports as per HPI GI Reports as per HPI Reports as per HPI Physical Exam Vital Signs: Last Vital Signs Pulse 64 12/22/24 13:03 BP 113/57 L 12/22/24 13:03 Pulse Ox 97 12/22/24 13:03 Oxygen Delivery Method Room Air 12/22/24 13:03 BMI result Body Mass Index 30.9 Const General: healthy appearing, no acute distress and well developed Nutritional Appearance: well nourished Orientation/consciousness: patient oriented x3 HEENT Head: Yes normal to inspection, Yes normocephalic and Yes atraumatic Face and sinus: Yes normal facial exam Eyes General: appearance normal, both eyes and all related structures Neck Neck: Yes normal visual inspection Resp Effort & Inspection: normal respiratory effort, able to speak in complete sentences, no tracheal deviation and symmetric chest movement Auscultation: clear to auscultation bilaterally Cardio Jugular venous distension: no JVD Rate: regular rate Rhythm: regular rhythm Heart sounds: S1 normal heart sound present, S2 normal heart sound present, no gallops and no murmurs GI Inspection: Yes normal to inspection, No distended and Yes obesity Palpation (GI): Soft to palpation, not firm, nontender, No hepatosplenomegaly pr esent and Other GI palpation findings present (midline ridge) Auscultation: normal bowel sounds Neuro General: patient oriented x3 Gait exam (Neuro): Normal gait present Psych Appearance: grossly normal Mental Status: mental status grossly normal Speech and movement: Normal speech and movement present Affect: normal affect Attitude: cooperative Thought process: Normal thought process present Thought content: Normal thought content present Insight: Good insight present (Psych) Judgement: Good judgement present (Psych) Results Reviewed Results Reviewed: Operative Note Date of Service: 06/19/23 Procedure Description: EGD, Colonoscopy Indication: screening and GERD FLEXIBLE TRANSORAL UPPER GASTROINTESTINAL ENDOSCOPY AND COLONOSCOPY PROCEDURE NOTE UPPER ENDOSCOPY Procedure: The patient was placed in the left lateral decubitis position and pre-procedure medications were administered and a bite block was placed. The endoscope was inserted into the mouth and advanced under direct vision to the third part of duodenum. A careful inspection was made as the upper endoscope was withdrawn including a retroflexed examination of the proximal stomach; Findings and interventions are described below. Findings: Larynx:normal Esophagus: GE junction at 36 cm, diaphragm hiatus at 38 cm, small sliding hiatal hernia 2 cm noted, bx taken from GEJ, distal and proximal esophagus Stomach: Patchy erythema. Biopsies were obtained. Grade 2 flap valve on retroflexed examination of the cardia. Duodenum: Normal bulb and descending duodenum, Intervention: Biopsies as noted above COLONOSCOPY Procedure: The patient was placed in the left lateral decubitis position and pre-procedure medications were administered. After a digital rectal examination of the ano-rectum, the video colonoscope was inserted into the rectum and advanced through the colon to the cecum/TI. The colonoscope was slowly withdrawn in a retrograde panoramic fashion and the colon mucosa was carefully examined including a retroflexed view of the rectum. Findings and interventions are described below. Procedure Difficulty:moderate Findings: Terminal Ileum-not intubated Cecum:normal Ascending Colon: normal Transverse Colon - x 2 sessile polyps 10-12 mm removed with cold snare Descending Colon:normal Sigmoid Colon: normal Rectum: Retroflexion with small internal hemorrhoids, grade I Anorectum - normal Colon preparation: [place] Bowel Preparation Scale Right colon; 1-2 Transverse colon: 2 Left colon; 2 Impression and Post Procedure Diagnosis: Endoscopy Findings: gastritis small hiatal hernia Colonoscopy Findings: polyps internal hemorrhoids Plan: Await Pathology results Repeat Colonoscopy in 1-2 years due to polyps and fair prep in some areas or earlier if clinically indicated High fiber diet leaflet avoid straining at stool, epsom salts and sitz bath, anusol supps or cream smoking cessation and gerd precautions Above findings were reviewed with the patient and relevant handouts were provided if indicated. PATHOLOGY Collected: 06/19/23 Location: [facility] Received: 06/19/23 Diagnosis A. Stomach, biopsy: Antral-type and oxyntic mucosa with mild chronic inactive inflammation; no Helicobacter organisms seen. B. GE junction, biopsy: - Cardiac-type mucosa with moderate chronic inactive inflammation; no intestinal metaplasia seen. - Squamous mucosa within normal limits. C. Esophagus, distal, biopsy: Squamous epithelium within normal limits; no inflammation seen. D. Esophagus, proximal, biopsy: Squamous epithelium within normal limits; no inflammation seen. E. Colon, transverse, polypectomy: Fragments of tubular adenoma; negative for high-grade dysplasia or carcinoma. Clinical History Pre-Op Dx: Screening, GERD Post-Op Dx: Colon polyps, internal hemorrhoids, gastritis, hiatal hernia Assessment & Plan Assessment & Plan (1) Colon cancer screening: Comment: 06/19/23 colonoscopy complete with fair prep- Fragments of tubular adenoma to colon, transverse; internal hemorrhoids, gastritis, hiatal hernia Code(s): Z12.11 - Encounter for screening for malignant neoplasm of colon Category: Medical Plan: Prior colonoscopy with fair prep and polyps; repeat needed for adequate visualization. Diagnostic Tests: extended prep needed, understands to take two senna tablets three days before the procedure, in addition to standard miralax split prep. Prescriptions for laxative tablets and Miralax sent to pharmacy; instructions for Gatorade purchase and clear liquid diet given. Patient educated on procedure preparation, including avoiding certain foods and ensuring clear liquid intake. Advised on necessity for ride post-procedure due to sedation. (2) Acid reflux: Comment: 06/19/23 EGD-gastritis, small hiatal hernia Code(s): K21.9 - Gastro-esophageal reflux disease without esophagitis Category: Medical Qualifiers: Esophagitis presence: without esophagitis Qualified Code(s): K21.9 - Gastro-esophageal reflux disease without esophagitis Plan: Daily heartburn, partial response to omeprazole; continued symptoms likley related to timing of medication and dietary triggers. Additional Tests: repeat upper endoscopy Medication: Adjust omeprazole regimen to ensure taken on an empty stomach, switch to one 40mg tablet daily. Encouraged to take omeprazole as prescribed, taken at least 30-60 minutes before a meal. Education on GERD prevention : -Advised against heavy meals; encouraged small, frequent meals instead of large ones. - Instructed to remain upright for 2?3 hours after eating. - Advised to avoid late-night meals, spicy foods, caffeine, alcohol, known dietary triggers, and tight-fitting clothing. - Emphasis placed on gradual implementation of lifestyle changes to improve adherence and symptom control. (3) Diastasis recti: Code(s): M62.08 - Separation of muscle (nontraumatic), other site Category: Medical Plan: exam findings c/w Rectus abdominis diastasis, no acute findings on exam. Additional Tests: Monitor; further imaging if pain worsens or mass enlarges. Lifestyle Modifications: - Avoid heavy lifting/straining. - Encourage gentle core strengthening as tolerated. - Weight management. Follow-Up: Re-evaluate if pain increases, mass enlarges, or new symptoms develop. Plan Follow-up after double endoscopy. Time: I spent a total of 45 minutes on the date of encounter which includes: Preparing to see the patient (reviewed previous documentation, test results and medical history) Performing a medically appropriate exam and/or evaluation Ordering medications, tests, and procedures Documenting clinical information in the health record Medications: New polyethylene glycol 3350 (Miralax) per colonoscopy prep instructions 238 grams PO ONCE 238 grams 0RF omeprazole take one tablet daily. Best taken 30 minutes before meal 40 mg PO DAILY 90 caps 1RF bisacodyl Take four tablets once for 1 day per colonoscopy instructions 5 mg PO ONCE 1 day 4 tabs 0RF sennosides (senna) Take two tablets nightly three days prior to prep for colonoscopy 8.6 mg PO DAILY 6 caps 0RF Coding Level of Care Code Established Pt Est Pt Level 4 (29657) Patient Type Established Diagnoses Colon cancer screening Z12.11 Gastroesophageal reflux disease without esophagitis K21.9 Esophagitis presence: without esophagitis Diastasis recti M62.08
[2024-12-22 13:03] VITALS: BP 113/57; PULSE 64; O2SAT 97; BMI 30.9
== END 2024-12-22 14:11 | disposition home or self-care (01) ==
LOC: HO.HGI 12:47
PROVIDERS: PCP Internal Medicine; Visit Provider Nurse Practitioner Family
DX: Z01.818 Encounter for other preprocedural examination (principal); Z12.11 Encounter for screening for malignant neoplasm of colon; K21.9 Gastro-esophageal reflux disease without esophagitis; M62.08 Separation of muscle (nontraumatic), other site
CPT/HCPCS: 99213

== ENCOUNTER → 2024-12-22 12:46 | Outpatient (BNVA) | payer MEDICAID, SELFPAY | PROVIDERS: PCP Internal Medicine; Visit Provider Nurse Practitioner Family | DX: Z12.11 Encounter for screening for malignant neoplasm of colon (principal); K21.9 Gastro-esophageal reflux disease without esophagitis; M62.08 Separation of muscle (nontraumatic), other site | CPT/HCPCS: 99212 ==

== ENCOUNTER 2025-06-11 14:03 | Day surgery (SDC) | payer OTHER, SELFPAY ==
--- OUTSIDE RECORDS SUMMARY | 2025-05-11 18:22 | XMS_ITS | Continuity of Care Document ---
Author Name [facility], Medical Address [address] [place] [id number] Organization Unknown Address [address] [place], [place] [id number] Medications No known medications Problems No known problems
--- OUTSIDE RECORDS SUMMARY | 2025-05-11 18:22 | XMS_ITS | Data Portability ---
Author Organization [employer], [employer] [facility] Address [address] [place] [address] Care Team Providers Care Molded Goods Controls Operator Name Role Phone HIM GLORIA OTHER Assessment Encounter Date Assessment Date Assessment LastModified by Organization Details LastModified Time 04/18/2025 04/18/2025 Evaluation in the field was performed by my marketing database consultant colleague, as noted above, I provided real-time direction and supervision for this visit. This is a 54yo M presenting with 3 days of cough, congestion, chest tightness with exposure to a family member with COVID. Denies fever, NVD. Does smoke cigarettes 1 ppd but uses no inhalers. PE: General: Awake & alert, NAD Respiratory: CTAB. Chest rise equal bilat, no increased wob CV: Regular rate, normal peripheral perfusion Neuro: A&Ox4, no focal deficits. EKG: NSR, rate of 67. No STEMI or acute ischemic findings. Impression: Upper respiratory infection Plan: -VSS, no hypoxia or fever. Appears well. -Neg COVID and flu -C/o chest tightness which responded to a single albuterol neb. Likely effect of 1ppd smoking. -Safe to stay at home but will prescribe an inhaler for him to have as well as prednisone for 5 days total, first dose given on scene 20mg. -Should f/u w/PCP Disposition: Remain at home We discussed the diagnostic uncertainty of home visits and the risk associated with this. In this case, the patient and I felt this to be an acceptable and reasonable amount of risk given the benefit of avoiding an ED visit. We discussed the need to seek care urgently/emerg ently in the setting of any new or worsening serious symptoms. [email or web address] Not available 04/18/2025 13:13:22 Plan of Treatment Reminders Order Date Submit Date Provider Last Modified By Organization Details Last Modified Time Details Appointments None recorded. Lab rapid SARS CoV 2 Ag, QL IA, respiratory specimen 2024 025 [facility], [address] [place] [address], [id number] 5 14:05:19 rapid flu (A+B) 2024 025 [facility], [address] [place] [address], [id number] 14:05:37 Referral None recorded. Procedures None recorded. Surgeries None recorded. Imaging electrocard iogram 2024 025 [facility], [address] [place] [address], [phone] 10:38:11 Medication Orders albuterol sulfate 2.5 mg/3 mL (0.083 %) solution for nebulizatio n [address] [facility] [id number], [address] [place] [address], [address], 12:57:30 albuterol sulfate HFA 90 mcg/actuati on aerosol inhaler 2024 025 [facility] [id number], [address] [place], [address], 5 12:35:51 prednisone 20 mg tablet [address] [id number], [address] [place], [address], 5 13:08:51 prednisone 10 mg tablet 2024 025 [facility] [id number], [address] [place], [address], 5 12:35:50 Patient TargetsNo targets recorded. Patient InstructionsNo instructions recorded. Reason for Referral None Reported. Results Created Date Observation Date Name Description Value Unit Range Abnormal Flag Note LastModifiedBy Organization Detail LastModifiedTime 04/18/2004/18/2025 elect beena diogr am No observ ation record ed. [email or web address] [address], [phone] 04/18/2025 14:06:07 Result Notes None recorded. Medical Equipment None Reported. Allergies No known drug allergies Medications Name Sig Start Date Stop Date Status Note LastModified by Organization Details LastModified Time losartan 50 mg tablet TAKE 1 TABLET BY MOUTH ONCE DAILY active Not Available Not Available No t Available celecoxib 200 mg capsule TAKE 1 CAPSULE BY MOUTH ONCE DAILY active Not Available Not Available No t Available atorvastatin 40 mg tablet TAKE 1 TABLET BY MOUTH ONCE DAILY AT BEDTIME active Not Available Not Available No t Available prednisone 10 mg tablet TAKE 2 TABLETS BY MOUTH ONCE DAILY FOR 2 DAYS THEN TAKE 1 TABLET BY MOUTH ONCE DAILY FOR 2 DAYS STARTING 04/19/25 active Not Available Not Available No t Available naltrexone 50 mg tablet TAKE 1 TABLET BY MOUTH ONCE DAILY FOR alcohol cravings (start ON 11/16/24) active Not Available Not Available No t Available ropinirole 3 mg tablet TAKE 1 TABLET BY MOUTH EVERY NIGHT AT BEDTIME active Not Available Not Available No t Available sertraline 100 mg tablet TAKE 2 TABLETS BY MOUTH IN THE MORNING active Not Available Not Available No t Available hydroxyzine HCl 50 mg tablet TAKE 1 TO 2 TABLETS BY MOUTH AT BEDTIME active Not Available Not Available No t Available omeprazole 40 mg capsule,delaye d release TAKE 1 CAPSULE BY MOUTH ONCE DAILY. best TO TAKE 30 MINUTES BEFORE A MEAL active Not Available Not Available No t Available buspirone 10 mg tablet TAKE 1 TABLET BY MOUTH two (2) times a day active Not Available Not Available No t Available albuterol sulfate HFA 90 mcg/actuation aerosol inhaler INHALE 2 PUFFS BY MOUTH EVERY 4 HOURS NEEDED active Not Available Not Available No t Available ropinirole 5 mg tablet TAKE 1 TABLET BY MOUTH EVERY NIGHT AT BEDTIME active Not Available Not Available No t Available naproxen 500 mg tablet TAKE 1 TABLET BY MOUTH two (2) times a day active Not Available Not Available No t Available buspirone 15 mg tablet TAKE 1 TABLET BY MOUTH two (2) times a day active Not Available Not Available No t Available bupropion HCl XL 300 mg 24 hr tablet, extended release TAKE 1 TABLET BY MOUTH IN THE MORNING active Not Available Not Available No t Available bupropion HCl XL 150 mg 24 hr tablet, extended release TAKE 1 TABLET BY MOUTH EVERY MORNING active Not Available Not Available No t Available pregabalin 25 mg capsule TAKE 1 CAPSULE BY MOUTH two (2) times a day active Not Available Not Available No t Available melatonin 5 mg tablet TAKE 1 TABLET BY MOUTH AT BEDTIME active Not Available Not Available No t Available ropinirole ER 6 mg tablet,extende d release 24 hr TAKE 1 TABLET BY MOUTH AT BEDTIME active Not Available Not Available No t Available Vitals Date Recorded Oxygen saturation Oxygen saturation in Arterial blood by Pulse oximetry Body temperature Body weight Respiratory rate Heart rate Body height Systolic And Diastolic Provider Name and Address Organization Details Last Updated DateTime 5 99 % 99 % 98.2 [degF] 62803.2 96 g 18 /min 76 /min 162.56 cm 138/81 mm[Hg] Not Available [facility] - production 5 12:56:03 Social History None recorded. Functional Status None recorded. Mental Status None recorded. Family History Nothing Reported. Medical History No medical history recorded. Past Encounters Encounter ID Performer Location Encounter Start Date Encounter Closed Date Diagnosis/Indication Diagnosis SNOMED-CT Code Diagnosis ICD10 Code Diagnosis IMO Codes Diagnosis Note [id number] Aliya Srivastava MD [facility] Medical [address] [phone] 04/18/2025 12:55:52 04/18/2025 20:54:28 Upper respiratory infection 28458454 J06.9 [id number] Health Concerns Section Related Observation LastModified by Organization Detai ls LastModified Time None Recorded Concern Status LastModified by Organization Details LastModified Time None Recorded Advance Directives Directive None Recorded Payers Insurance Date Sequence Insurance Name Policy Number Policy Peña Covered Member ID Peña Member ID Guarantor Name 04/18/2025 1 [facility] DOS ON OR AFTER 2022 - DUAL ELIGIBLE - JAIL OPTIONS AND ONE CARE (MEDICARE REPLACEMENT/AD VANTAGE - HMO) [place] Hummel [id number] [place] Hummel Notes Date Note Type Note Provider Name and Address Organization Details Recorded Time 04/18/2025 text/html ROS as noted in the HPI HPI: mbr with complaints of cough chest congestion pain yellow phlegm chills and weakness. denies any Sob/N/V requesting [facility] visit for evaluation ...................... ...................... ...................... ...................... ...................... ...................... ......... [facility] Nurse Triage Notes (Pao Wright): Chief Complaints: Chest Pain, Common Cold, Cough, Fever, Headache, Weakness PMH: Gastroesophageal Reflux Disease (GERD), Severe Persistent Mental Illness (SPMI) PMH Reviewed at 04/18/2025 - : Allergies Reviewed at 04/18/2025 - : Comments: HPI reviewed. Technology Coach Organization Information for Alison Galicia Business Legal Name: [employer] Address: [address] [place] [address], Investment Underwriter: Bradly Ellsworth MD [place] No.: [id number] Technology Coach POC Test Results from Alison Galicia Cerebrex Rapid COVID antigen (12:50:43) COVID: - Attachments uploaded as part of this test result can be found under Documents section. Rapid influenza antigen (12:50:44) Flu: - EKG (12:51:03) EKG test performed. Attachments uploaded as part of this test result can be found under Documents section. EKG (12:51:03) - This test has been updated by the marketing database consultant, Alison Galicia at (04/18/2025 13:49:12). The changes are marked in bold. EKG test performed. Attachments uploaded as part of this test result can be found under Documents section. ...................... ...................... ...................... ...................... ...................... ...................... ......... Technology Coach Note From Alison Galicia: [facility] responds to the listed address for a 54yom who wants to be evaluated for COVID. Upon arrival, pt opens the door to the apartment for [facility]. He is generally well-appearing, smiling, and fully ambulatory w/ no noted abnormalities in his gait. As he walks to the living room, he is moving his arms and legs in a smooth and coordinated manner and is asking a family member to come interpret for him. No ashen or newton color are noted to the skin, no stridor or sonorous respirations are present and he is not speaking in 2-3 words sentences and no accessory muscle usage are observed. No major bleeding is noted anywhere. The apartment smells heavily of cigarette smoke, but is otherwise clean and well-kept. According to family, 1-2 weeks ago, family member was dx w/ COVID. Pt is endorsing not feeling well for the past 3 days. He reports s/s of chest tightness, dimas, body aches, and productive cough w/ yellow sputum. He denies fevers/chills, n/v/d, urinary symptoms, cp, or severe sob, but has had good PO of food and water. Three days prior, he says he had some cp for the day, but that has since subsided. Today the cough and body aches are what is bothering him the most. He has no known allergies and has untreated HTN and is a pack-a-day smoker since the age of 17yo. He consents to evaluation and treatment today. Ddx: COVID/flu, URI, bronchitis, pna [facility] obtains pt consent. Vital signs are gathered and pt is normotensive, not hypoxic, and afebrile. A 12-lead EKG is obtained due to pt's age and cp complaint and shows a sinus rhythm w/ no acute ST or T wave abnormalities present. Lung sounds are clear and equal, neck is supple, and trachea is midline. Chest rises and falls equally w/ respirations and no noted accessory muscle usage at this time. No CVA tenderness is present, heartbeat is strong and regular w/ no clicks or rubs noted. No pedal edema and CMS is intact in all four extremities. [facility] contacts [facility] and discusses the above. [facility] orders one albuterol breathing treatment and lung sound reassessment. [facility] administers 2.5mg albuterol via nebulizer pipe at 8 lpm. Pt tolerates tx well and he reports a decreased wob. Lung sounds remained clear. [facility] contacts [facility] and [facility] prescribes an albuterol inhaler and a prednisone taper. [facility] orders 60mg prednisone PO for pt now and calls in the remaining taper to pt's pharmacy. [facility] administers 20mg prednisone x2 tablets and 5mg x4 tablets prednisone PO for pt and he takes them w/ a bottle of water. [facility] instructs pt to follow the instructions on how to take the medication on the bottle and to call for a reevaluation if his symptoms do not improve after taper and inhaler use. [facility] instructs t to seek emergency care if he gets a high fever, severe cp, sob, or uncontrolled n/v/d, or if his symptoms generally get worse. Pt gives his verbal understanding. [facility] is clear. Report completed by MARSHALL Galicia [id number]. [facility] Lab Orders: rapid SARS CoV 2 Ag, QL IA, respiratory specimen: Performed rapid flu (A+B): Performed electrocardiogram: Performed [facility] Medication Orders: albuterol sulfate 2.5 mg/3 mL (0.083 %) solution for nebulization: Performed prednisone 20 mg tablet: Performed ...................... ...................... ...................... ...................... ...................... ...................... ......... [facility] Consulted: Aliya Srivastava ...................... ...................... ...................... ...................... ...................... ...................... ......... Disposition: Fulfilled Aliya Srivastava MD [address] [facility], [place], [address], CALIXTO MOBLEY 04/18/2025 13:55:26
--- OUTSIDE RECORDS SUMMARY | 2025-05-11 18:22 | XMS_ITS | Encounter Summary ---
Author Organization [facility] Address [address] [place] [address] Encounters * CPT with [facility] on 2025-04-18 mbr with complaints of cough chest congestion pain yellow phlegm chills and weakness. denies any Sob/N/V [facility] { reasonForRequest : , patientReports : , denies&quot ;:[], chiefComplaints : Chest Pain, Common Cold, Cough, Fever, Headache, Weakness", pmh : Gastroesophageal Reflux Disease (GERD), Severe Persistent Mental Illness (SPMI) , allergies : No Known Drug Allergies , otherAllergies :&quo t; , painAssessment : , visitOutcome : , additionalComments : HPI reviewed. } [facility] responds to the listed address for a 54yom who wants to be evaluated for COVID. Upon arrival, pt opens the door to the apartment for [facility]. He is generally well- appearing, smiling, and fully ambulatory w/ no noted abnormalities in his gait. As he walks to the living room, he is moving his arms and legs in a smooth and coordinated manner and is asking a family member to come interpret for him. No ashen or newton color are noted to the skin, no stridor or sonorous respirations arepresent and he is not speaking in 2-3 [...] treatment today. Ddx: COVID/flu, URI, bronchitis, pna [facility] obtains pt consent. Vital signs are gathered and pt is normotensive, not hypoxic, and afebrile.A 12-lead EKG is obtained due to pt's [...] w/ no clicks or rubs noted. No pedaledema and CMS is intact in all four extremities. [facility] contacts [facility] and discusses the above. [facility] orders one albuterol breathing treatment and lung sound reassessment. [facility] administers 2.5mg albuterol via nebulizer pipe at 8 lpm. Pt tolerates tx well and he reports a decreased wob. Lung sounds remainedclear. [facility] contacts [facility] and [facility] prescribes an albuterol inhaler and a prednisone taper. [facility] orders 60mg prednisone PO for pt now and calls in the remaining taper to pt's pharmacy. [facility] administers 20mg prednisone x2 tablets and 5mg x4 tablets prednisone PO for pt and he takes them w/ a bottle of water. [facility] instructs pt to follow the instructions on how to take the medication on the bottle and to call for a reevaluation if his symptoms do not improve after taper and inhaler use. [facility] instructs t to seek emergency care if he gets a high fever, severe cp, sob, or uncontrolled n/v/d, or if his symptoms generally get worse. Pt gives his verbal understanding. [facility] is clear. Report completed by MARSHALL Galicia [id number]. IV_(FLUIDS_AND/OR_MEDICATION), MEDICATION_IM, ORAL_MEDICATION, EKG, POC_BLOODWORK, POC_FLU_STREP, COVID_TEST, WOUND_CARE Written by Medical [facility] on 2025-04-18
--- NOTE | 2025-06-08 12:23 | HO.ANESPROP2 ---
Documented by User: Deidra Solares NP 06/08/25 12:26 HPI - Anesthesia Eval Consult details Narrative: 54yo M for Upper Endoscopy and Colonoscopy PMFSH Active Problems Active Problems: All Active Problems Diastasis recti (Acute) Colon cancer screening (Acute) Tubular adenoma (Acute) Hemorrhoids (Acute) Hiatal hernia (Acute) Acid reflux (Acute) Light cigarette smoker (1-9 cigarettes per day) (Acute) Chronic low back pain (Acute) Lumbar radiculopathy (Acute) Right hip pain (Acute) Lumbar spondylosis (Acute) Waterbrash symptom (Acute) Abdominal pain (Acute) Encounter for screening colonoscopy (Acute) Past Medical History Medical History (Updated 12/22/24 @ 14:04 by Elyssa Mcclendon CNP) Diastasis recti Colon cancer screening Essential hypertension Restless leg syndrome High cholesterol Chronic low back pain Depression Sleep apnea Acid reflux Family History Family history of problems with anesthesia: No Surgical History Surgical History Hx of colonoscopy History of esophagogastroduodenoscopy (EGD) History of facial surgery History of Problems with Anesthesia: No Social History Social History Household Members: Spouse Alcohol intake: never Patient Tobacco Use Status: Current everyday Tobacco user Tobacco use type: Cigarette Use of substances other than those prescribed or required for medical reasons: Yes Substance Use Type: Former Substance User and Heroin Substance Use Frequency: Occasionally Advance Directives: No Advance Directives Information Provided: Yes Meds Allergies Allergy/AdvReac Type Severity Reaction Status Date / Time diphenhydramine (From Allergy Severe Chest Pain Verified 12/22/24 12:52 Benadryl) Home Medications ?Medication ?Instructions ?Recorded ?Confirmed ?Last Taken ?Type bupropion HCl 150 mg 24 hr tablet, 150 mg PO QAM 06/24/23 12/22/24 Unknown History extended release buspirone 7.5 mg tablet 7.5 mg PO BID 06/24/23 12/22/24 Unknown History hydroxyzine HCl 50 mg tablet 50 - 100 mg PO BEDTIME 06/24/23 12/22/24 Unknown History sertraline 100 mg tablet 200 mg PO QAM 06/24/23 12/22/24 Unknown History atorvastatin 40 mg tablet 40 mg PO BEDTIME 07/03/23 12/22/24 Unknown History ropinirole 2 mg tablet 3 mg PO BEDTIME 07/03/23 12/22/24 Unknown History losartan 50 mg tablet 50 mg PO DAILY 12/22/24 12/22/24 Unknown History Assessment and Plan Assessment Anesthesia Assessment: Chart Reviewed Final Anesthetic Review Family History of Problems with Anesthesia: No History of Problems with Anesthesia: No Documented by User: Corie Mayfield MD 06/11/25 15:25 [facility] Past Medical History Medical History (Updated 12/22/24 @ 14:04 by Elyssa Mcclendon CNP) Diastasis recti Colon cancer screening Essential hypertension Restless leg syndrome High cholesterol Chronic low back pain Depression Sleep apnea Acid reflux Surgical History Surgical History Hx of colonoscopy History of esophagogastroduodenoscopy (EGD) History of facial surgery Social History Social History Household Members: Spouse Alcohol intake: never Patient Tobacco Use Status: Current everyday Tobacco user Tobacco use type: Cigarette Use of substances other than those prescribed or required for medical reasons: Yes Substance Use Type: Former Substance User and Heroin Substance Use Frequency: Occasionally Advance Directives: No Advance Directives Information Provided: Yes Meds Allergies Allergy/AdvReac Type Severity Reaction Status Date / Time diphenhydramine (From Allergy Severe Chest Pain Verified 12/22/24 12:52 Benadryl) Home Medications ?Medication ?Instructions ?Recorded ?Confirmed ?Last Taken ?Type bupropion HCl 150 mg 24 hr tablet, 150 mg PO QAM 06/24/23 12/22/24 Unknown History extended release buspirone 7.5 mg tablet 7.5 mg PO BID 06/24/23 12/22/24 Unknown History hydroxyzine HCl 50 mg tablet 50 - 100 mg PO BEDTIME 06/24/23 12/22/24 Unknown History sertraline 100 mg tablet 200 mg PO QAM 06/24/23 12/22/24 Unknown History atorvastatin 40 mg tablet 40 mg PO BEDTIME 07/03/23 12/22/24 Unknown History ropinirole 2 mg tablet 3 mg PO BEDTIME 07/03/23 12/22/24 Unknown History losartan 50 mg tablet 50 mg PO DAILY 12/22/24 12/22/24 Unknown History Exam Airway Mallampati Class: II (missing a coupke, denies anything loose) TM Dist: >3cm Neck ROM: Full Heart: rrr Lungs: cta Assessment and Plan Assessment Anesthesia Assessment: Anesthesia Plan Discussed Final Anesthetic Review NPO: Yes ASA Class: II Final Preanesthetic Review: No Changes in Pt Med Stat, Meds/Allgs Chart Reviewed and Consent Obtained/Reviewed Patient Risk: Low Procedure Risk: Low Anesthetic Plan Anesthetic Plan: MAC: Disposition: Standard PACU
[2025-06-11 14:26] VITALS: BMI 30.3
[2025-06-11 14:35] VITALS: BP 137/91; PULSE 98; RESP 16; TEMP 36; O2SAT 96
[2025-06-11] MEDS: Lactated Ringers 1,000 ML 100 ML IVCONT (14:36)
--- NOTE | 2025-06-11 16:04 | MHC.SHP ---
Pre-Procedural Eval Section A - 24 Hr Update-Section A only Date of Service: 06/11/25 Section B - Complete if H&P > 30 days Chief Complaint: hx colon polyps,gerd Details of Present Illness: Diastasis recti Colon cancer screening Essential hypertension Restless leg syndrome High cholesterol Chronic low back pain Depression Sleep apnea Acid reflux Surgical History Hx of colonoscopy History of esophagogastroduodenoscopy (EGD) History of facial surgery Present Medications: see Short Stay Collaborative assessment Allergies: Allergies Allergy/AdvReac Type Severity Reaction Status Date / Time diphenhydramine (From Allergy Severe Chest Pain Verified 12/22/24 12:52 Benadryl) Review of Systems Review of Systems Comment: Ten point ROS negative Exam Exam Comment: Gen appear: No acute distress HEENT: no icterus Chest: No overt resp distress Abd: soft, nontender, nondistended Psych: Stable affect, answering questions appropriately Neuro: A/Ox3 noted to move all extremities spontaneously Ext: no peripheral edema Plan Diagnosis/Plan: Unchanged I have reviewed the history and physical and performed a pertinent physical examination on my patient. No changes have occurred unless specified. Time Spent With Patient Time: Total time managing care of this patient today ____ minutes.
--- NOTE | 2025-06-11 16:08 | P.OPN-COLO_ITS ---
Colonoscopy Operative Note Operative Note Date of Service: 06/11/25 Narrative: Procedure: Upper endoscopy and colonoscopy Indication: GERD, screening Endoscopist: Shama Crespo MD Anesthesia Provider: Rosa Isela Cardona Anesthesia type: MAC Instrument: GIF-H190 and PCF-H190L EGD Procedure:?? The procedure, indications, preparation and potential complications were reviewed with the patient, who indicated understanding and gave written informed consent to proceed. The endoscope was introduced through the mouth, and advanced to the 2nd part of the duodenum. The mucosa was carefully examined on slow withdrawal of the endoscope. The patient tolerated the procedure well. There were no immediate complications.? EGD Findings:? * Esophagus:? A focal patch of heterotopic gastric mucosa was noted in the upper esophagus. Remaining mucosa was normal. The Z-line was at 35 and irregular to 34 cm. Cold forceps biopsies were taken from GE junction to rule out Herman's esophagus. * Stomach:? Normal gastric mucosa. Retroflexion was performed in the cardia. * Duodenum:? Diffuse congestion and erythema was noted in the duodenal bulb. Cold forceps biopsies were taken for histology. Colonoscopy Procedure:? The patient was then turned for the colonoscopy. A digital rectal exam was performed which was normal.? A distal attachment cap was affixed to the tip of the scope and the colonoscope was then inserted through the anus and advanced through the colon and advanced to the cecum at 75 cm.? Appendiceal orifice and ileocecal valve were identified. Mucosa was carefully examined under high definition white light as the instrument was slowly withdrawn in a retrograde panoramic fashion. Retroflexion was performed in rectum. The procedure was not difficult. The quality of the prep was BBPS:2+2+3 = adequate Withdrawal time 13 minutes Limitations: No limitations Findings: Mucosa: Copious solid and liquid stool noted in the right side of the colon and cecal pouch. Otherwise, colon mucosa normal to the extent examined. Protruding lesions: * One sessile polyp of size 3 mm noted in transverse colon. Cold snare polypectomy was performed. The polyp was completely removed and retrieved. * One sessile polyp of size 3 mm noted in descending colon. Cold snare polypectomy was performed. The polyp was completely removed and retrieved. * Large internal hemorrhoids without stigmata of recent bleeding. Impression: 1. Inlet patch 2. Irregular Z line (biopsy) 3. Normal stomach 4. Bulbar duodenitis (biopsy) 5. Fair prep 6. Normal colon mucosa 7. Total 2 polyps removed 8. Internal hemorrhoids Recommendations:?? * Follow-up path results * Avoid NSAIDs, smoking and etOH * Cont PPI therapy * Repeat colonoscopy in 5 years due to prep quality
[2025-06-11 16:52] VITALS: BP 99/71; PULSE 72; RESP 17; TEMP 36.7; O2SAT 98
[2025-06-11 17:07] VITALS: BP 107/71; PULSE 63; RESP 18; O2SAT 95
[2025-06-11 17:22] VITALS: BP 106/79; PULSE 65; RESP 18; TEMP 36.4; O2SAT 97
== END 2025-06-11 17:51 | disposition home or self-care (01) ==
PROVIDERS: PCP Internal Medicine; Visit Provider Internal Medicine
PROC: (CPT 45385; principal; 2025-06-11 15:50)
DX: Z12.11 Encounter for screening for malignant neoplasm of colon (principal); K21.9 Gastro-esophageal reflux disease without esophagitis; Z86.0101 Personal history of adenomatous and serrated colon polyps; K64.8 Other hemorrhoids; D12.4 Benign neoplasm of descending colon; D12.3 Benign neoplasm of transverse colon; K29.80 Duodenitis without bleeding
CPT/HCPCS: 45385; 43239; 88305; 88313; J1100; J2003; J2250; J2704

== ENCOUNTER → 2025-06-11 14:03 | Outpatient (BNV) | payer OTHER, SELFPAY | PROVIDERS: PCP Internal Medicine; Visit Provider Internal Medicine | DX: Z12.11 Encounter for screening for malignant neoplasm of colon (principal); K63.5 Polyp of colon; K64.8 Other hemorrhoids; Z91.199 Patient's noncompliance with other medical treatment and regimen due to unspecified reason; K21.9 Gastro-esophageal reflux disease without esophagitis; K22.89 Other specified disease of esophagus; K29.80 Duodenitis without bleeding | CPT/HCPCS: 43239; 45385 ==

== ENCOUNTER 2025-06-23 12:58 | Outpatient (AMB) | payer OTHER, SELFPAY ==
[2025-06-23 13:02] VITALS: BP 122/68; PULSE 72; BMI 30.3
--- NOTE | 2025-06-23 13:02 | A.OFFVIS_ITS ---
Vital Signs 06/23/25 13:02 Height 5 ft 4 in Weight 176 lb 5.917 oz BMI 30.3 BP 122/68 Blood Pressure Location Lt brachial Position Sitting Pulse 72 Intake Visit Reasons: s/p double Intake Note: [place] presents in the office as a follow up for his EGD and COLO. CC: States that he is just here for results - no concerns. Volleyball Player Required: Yes Volleyball Player Services: Volleyball Player Present Volleyball Player Name: Radha [id number] Allergies diphenhydramine (From Benadryl) Allergy (Severe, Verified 06/23/25 13:06) Chest Pain HPI HPI s/p double: Details: Patient is a 54-year-old male with PMH of chronic low back pain, nicotine dependence, hypertension, sleep apnea, depression, acid reflux and history of head/neck cancer. F/u after EGD and colonoscopy performed on June 11 for evaluation of chronic reflux and screening. Pt continues to experience heartburn, but reports improvement in symptoms with adherence to omeprazole 40 mg qd, as discussed at prior visit. No new GI complaints, bleeding, melena, or changes in stools reported. Pt maintains abstinence from alcohol except for special occasions, and is aware of role of tobacco/marijuana smoking contributing to reflux. No recent hospitalizations, urgent care visits, or flares since last encounter. [facility] Medical History (Updated 06/23/25 @ 13:56 by Elyssa Mcclendon CNP) Adenomatous colon polyp Diastasis recti Colon cancer screening Essential hypertension Restless leg syndrome High cholesterol Chronic low back pain Depression Sleep apnea Acid reflux Surgical History Hx of colonoscopy History of esophagogastroduodenoscopy (EGD) History of facial surgery Social History Household Members: Spouse Alcohol intake: never Patient Tobacco Use Status: Current everyday Tobacco user Tobacco use type: Cigarette Substance Use Type: Former Substance User and Heroin Review of Systems Const Reports as per HPI ENT Reports as per HPI Card Reports as per HPI Resp Reports as per HPI GI Reports as per HPI Reports as per HPI Physical Exam Vital Signs: Last Vital Signs Pulse 72 06/23/25 13:02 BP 122/68 06/23/25 13:02 BMI result Body Mass Index 30.3 Const General: healthy appearing, no acute distress and well developed Nutritional Appearance: average body habitus Orientation/consciousness: patient oriented x3 HEENT Head: Yes normal to inspection, Yes normocephalic and Yes atraumatic Face and sinus: Yes normal facial exam Eyes General: appearance normal, both eyes and all related structures Neck Neck: Yes normal visual inspection Resp Effort & Inspection: normal respiratory effort, able to speak in complete sentences, no tracheal deviation and symmetric chest movement Neuro General: patient oriented x3 Gait exam (Neuro): Normal gait present Psych Appearance: grossly normal Mental Status: mental status grossly normal Speech and movement: Normal speech and movement present Affect: normal affect Attitude: cooperative Thought process: Normal thought process present Thought content: Normal thought content present Insight: Good insight present (Psych) Judgement: Good judgement present (Psych) Results Reviewed Results Reviewed: Operative Note Date of Service: 06/11/25 Narrative: Procedure: Upper endoscopy and colonoscopy Indication: GERD, screening Endoscopist: Shama Crespo MD Anesthesia Provider: Rosa Isela Cardona Anesthesia type: MAC Instrument: GIF-H190 and [id number]-[id number] EGD Procedure: The procedure, indications, preparation and potential complications were reviewed with the patient, who indicated understanding and gave written informed consent to proceed. The endoscope was introduced through the mouth, and advanced to the 2nd part of the duodenum. The mucosa was carefully examined on slow withdrawal of the endoscope. The patient tolerated the procedure well. There were no immediate complications. EGD Findings: Esophagus: A focal patch of heterotopic gastric mucosa was noted in the upper esophagus. Remaining mucosa was normal. The Z-line was at 35 and irregular to 34 cm. Cold forceps biopsies were taken from GE junction to rule out Herman's esophagus. Stomach: Normal gastric mucosa. Retroflexion was performed in the cardia. Duodenum: Diffuse congestion and erythema was noted in the duodenal bulb. Cold forceps biopsies were taken for histology. Colonoscopy Procedure: The patient was then turned for the colonoscopy. A digital rectal exam was performed which was normal. A distal attachment cap was affixed to the tip of the scope and the colonoscope was then inserted through the anus and advanced through the colon and advanced to the cecum at 75 cm. Appendiceal orifice and ileocecal valve were identified. Mucosa was carefully examined under high definition white light as the instrument was slowly withdrawn in a retrograde panoramic fashion. Retroflexion was performed in rectum. The procedure was not difficult. The quality of the prep was BBPS:2+2+3 = adequate Withdrawal time 13 minutes Limitations: No limitations Findings: Mucosa: Copious solid and liquid stool noted in the right side of the colon and cecal pouch. Otherwise, colon mucosa normal to the extent examined. Protruding lesions: One sessile polyp of size 3 mm noted in transverse colon. Cold snare polypectomy was performed. The polyp was completely removed and retrieved. One sessile polyp of size 3 mm noted in descending colon. Cold snare polypectomy was performed. The polyp was completely removed and retrieved. Large internal hemorrhoids without stigmata of recent bleeding. Impression: 1. Inlet patch 2. Irregular Z line (biopsy) 3. Normal stomach 4. Bulbar duodenitis (biopsy) 5. Fair prep 6. Normal colon mucosa 7. Total 2 polyps removed 8. Internal hemorrhoids Recommendations: Follow-up path results Avoid NSAIDs, smoking and etOH Cont PPI therapy Repeat colonoscopy in 5 years due to prep quality PATHOLOGY: Collected: 06/11/25 Location: [facility] Received: 06/14/25 Diagnosis A. Duodenum, biopsy: Duodenal mucosa with predominantly preserved villi and features of chronic/non- specific duodenitis B. Gastroesophageal junction, biopsy: Squamocolumnar mucosa with hyperplasia and mild inflammation consistent with reflux; negative for intestinal metaplasia and dysplasia. C. Colon, transverse, polyp: Tubular adenoma; negative for high-grade dysplasia and carcinoma. D. Colon, descending, polyp: Tubular adenoma; negative for high-grade dysplasia and carcinoma. Clinical History Pre-Op Dx: GERD Post-Op Dx: Duodenitis, inlet patch, colon polyps, hemorrhoids, fair prep Assessment & Plan Assessment & Plan (1) Adenomatous colon polyp: Comment: 06/11/25 colonoscopy complete with fair prep- Normal colon mucosa, 3 mm TA (transverse), 3 mm TA (descending), large internal hemorrhoids. Recommendations for repeat in 5 years due to quality of prep Code(s): D12.6 - Benign neoplasm of colon, unspecified Category: Medical Qualifiers: Colon location: transverse Qualified Code(s): D12.3 - Benign neoplasm of transverse colon Plan: S/P removal of two precancerous adenomatous polyps; colonoscopy complete with fair prep. No evidence of carcinoma. Additional testing: None necessary at this time. Medications: None specific for this indication. Lifestyle Recommendations: Maintain healthy diet; avoid colorectal risk factors. Prep education will be reinforced prior to next procedure. Referrals / Coordination of Care: None required; pt to set personal reminder for next colonoscopy. Follow-Up Plan: Repeat colonoscopy recommended in 5 yrs due to adenoma findings and suboptimal prep; reinforce need for improved prep next time. (2) Acid reflux: Comment: -06/11/25 EGD -inlet patch, Normal stomach, Bulbar duodenitis -06/19/23 EGD-gastritis, small hiatal hernia Code(s): K21.9 - Gastro-esophageal reflux disease without esophagitis Category: Medical Qualifiers: Esophagitis presence: without esophagitis Qualified Code(s): K21.9 - Gastro-esophageal reflux disease without esophagitis Plan: Improving; heartburn controlled with omeprazole 40 mg qd. No new symptoms. Additional testing: None indicated at this time. Medications: Continue omeprazole 40 mg PO qd; refill sent. Lifestyle Recommendations: Continue to avoid alcohol, NSAIDs, tobacco, and marijuana to minimize reflux; reinforce smoking cessation benefits. Referrals / Coordination of Care: None indicated. Follow-Up Plan: RTC in 6 mos or prn for worsening symptoms or decreased efficacy of current regimen. Plan Follow-up in 6 months or sooner as needed Time: I spent a total of 22 minutes on the date of encounter which includes: Preparing to see the patient (reviewed previous documentation, test results and medical history) Performing a medically appropriate exam and/or evaluation Ordering medications, tests, and procedures Documenting clinical information in the health record factor Medications: Discontinued omeprazole Discontinued Reason: Doctor's Order 40 mg (2 x 20 mg) PO DAILY 30 days 60 caps 3RF Coding Level of Care Code Established Pt Est Pt Level 3 (41890) Patient Type Established Diagnoses Adenomatous polyp of transverse colon D12.3 Colon location: transverse Gastroesophageal reflux disease without esophagitis K21.9 Esophagitis presence: without esophagitis
--- OUTSIDE RECORDS SUMMARY | 2025-06-23 15:27 | XMS_ITS | Continuity of Care Document ---
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 Procedures None recorded. Surgeries None recorded. Imaging electrocard iogram 2024 025 [facility], [address] [place] [address], [id number] 10:38:11 Medication Orders albuterol sulfate 2.5 mg/3 mL (0.083 %) solution for nebulizatio n [address] [facility] [id number], [address] [place], [address], 12:57:30 albuterol sulfate HFA 90 mcg/actuati on aerosol inhaler 2024 025 [facility] [id number], [address] [place], [address], 5 12:35:51 prednisone 20 mg tablet [address] [id number], [address] [place], [address], 5 13:08:51 prednisone 10 mg tablet 2024 025 [facility] [id number], [address] [place], [address], 5 12:35:50 Patient TargetsNo targets recorded. Patient InstructionsNo instructions recorded. Reason for Referral None Reported. Results Created Date Observation Date Name Description Value Unit Range Abnormal Flag Note LastModifiedBy Organization Detail LastModifiedTime 04/18/2004/18/2025 elect beena diogr am No observ ation record ed. [email or web address] [address], [phone] 04/18/2025 14:06:07 Result Notes None recorded. 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 Functional Status None recorded. Mental Status None recorded. Family History Nothing Reported. Medical History No medical history recorded. Past Encounters Encounter ID Performer Location Encounter Start Date Encounter Closed Date Diagnosis/Indication Diagnosis SNOMED-CT Code Diagnosis ICD10 Code Diagnosis IMO Codes Diagnosis Note [id number] Aliya Srivastava MD [facility] [address] [phone] 04/18/2025 12:55:52 04/18/2025 20:54:28 Upper respiratory infection 19628448 J06.9 [id number] Health Concerns Section Related Observation LastModified by Organization Detai ls LastModified Time None Recorded Concern Status LastModified by Organization Details LastModified Time None Recorded Payers Encounter Date Sequence Insurance Name Policy Number Policy Peña Covered Member ID Peña Member ID Guarantor Name 04/18/2025 1 [facility] - DOS ON OR AFTER 2022 - DUAL ELIGIBLE - CUSTODIAL OPTIONS AND ONE CARE (MEDICARE REPLACEMENT/AD VANTAGE - HMO) Cuba Hummel [id number] [place] Hummel Notes Date Note Type Note Provider Name and Address Organization Details Recorded Time 04/18/2025 text/html ROS as noted in the HPI HPI: mbr with complaints of cough chest congestion pain yellow phlegm chills and weakness. denies any Sob/N/V requesting [facility] visit for evaluation ...................... ...................... ...................... ...................... ...................... ...................... ......... [facility] Nurse Triage Notes (Pao Wright): Chief Complaints: Chest Pain, Common Cold, Cough, Fever, Headache, Weakness PMH: Gastroesophageal Reflux Disease (GERD), Severe Persistent Mental Illness (SPMI) PMH Reviewed at 04/18/2025 - : Allergies Reviewed at 04/18/2025 - : Comments: HPI reviewed. 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 Rapid influenza antigen (12:50:44) Flu: - EKG (12:51:03) EKG test performed. Attachments uploaded as part of this test result can be found under Documents section. EKG (12:51:03) - This test has been updated by the change agent, Grayson Vanessaalurita at (04/18/2025 13:49:12). The changes are marked in bold. EKG test performed. Attachments uploaded as part of this test result can be found under Documents section. ...................... ...................... ...................... ...................... ...................... ...................... ......... Bird Cage Assembler Note From [facility]: [facility] responds to the listed address for a 54yom who wants to be evaluated for COVID. Upon arrival, pt opens the door to the apartment for [facility]. He is generally well-appearing, smiling, [...] today. Ddx: COVID/flu, URI, bronchitis, pna [facility] obtains pt consent. Vital signs [...] is intact in all four extremities. [facility] contacts [facility] and discusses the above. [facility] orders one albuterol breathing treatment and lung sound reassessment. [facility] administers 2.5mg albuterol via nebulizer pipe at 8 lpm. Pt tolerates tx well and he reports a decreased wob. Lung sounds remained clear. [facility] contacts [facility] and [facility] prescribes an albuterol inhaler and a prednisone taper. [facility] orders 60mg prednisone PO for pt now and calls in the remaining taper to pt's pharmacy. [facility] administers 20mg prednisone x2 tablets and 5mg x4 tablets prednisone PO for pt and he takes them w/ a bottle of water. [facility] instructs pt to follow the instructions on how to take the medication on the bottle and to call for a reevaluation if his symptoms do not improve after taper and inhaler use. [facility] instructs t to seek emergency care if he gets a high fever, severe cp, sob, or uncontrolled n/v/d, or if his symptoms generally get worse. Pt gives his verbal understanding. [facility] is clear. Report completed by MARSHALL Galicia [id number]. [facility] Lab Orders: rapid SARS CoV 2 Ag, QL IA, respiratory specimen: Performed rapid flu (A+B): Performed electrocardiogram: Performed [facility] Medication Orders: albuterol sulfate 2.5 mg/3 mL (0.083 %) solution for nebulization: Performed prednisone 20 mg tablet: Performed ...................... ...................... ...................... ...................... ...................... ...................... ......... [facility] Consulted: Aliya Srivastava ...................... ...................... ...................... ...................... ...................... ...................... ......... Disposition: Fulfilled Aliya Srivastava MD [address] [facility], [place], [address], RICARDA - CALIXTO CASANOVA 04/18/2025 13:55:26
--- OUTSIDE RECORDS SUMMARY | 2025-06-23 15:27 | XMS_ITS | Data Portability ---
Author Organization [employer] [place] [employer] [facility] Address [address] [place] [address] Care Team Providers Care Presales Engineer Name Role Phone HIM GLORIA OTHER Assessment Encounter Date Assessment Date Assessment LastModified by Organization Details LastModified Time 04/18/2025 04/18/2025 Evaluation in the field was performed by my head counselor colleague, as noted above, I provided real-time [...] Ag, QL IA, respiratory specimen 2024 025 [facility], [address] [place] [address], [phone] 5 14:05:19 rapid flu (A+B) 2024 025 [facility], [address] [place] [address], [phone] 14:05:37 Referral None recorded. Procedures None recorded. Surgeries None recorded. Imaging electrocard iogram 2024 025 [facility], [address] [place] [address], [id number] 10:38:11 Medication Orders albuterol sulfate 2.5 mg/3 mL (0.083 %) solution for nebulizatio n [facility] [facility] [id number], [address] [place] [address], [id number], 12:57:30 albuterol sulfate HFA 90 mcg/actuati on aerosol inhaler 2024 025 [facility] [id number], [address] [place], [address], 5 12:35:51 prednisone 20 mg tablet [address] [id number], [address] [place], [address], 5 13:08:51 prednisone 10 mg tablet 2024 025 [facility] [id number], [address] [place], [address], 5 12:35:50 Patient TargetsNo targets recorded. Patient InstructionsNo instructions recorded. Reason for Referral None Reported. Results Created Date Observation Date Name Description Value Unit Range Abnormal Flag Note LastModifiedBy Organization Detail LastModifiedTime 04/18/2004/18/2025 elect beena diogr am No observ ation record ed. [email or web address], [phone] 04/18/2025 14:06:07 Result Notes None recorded. 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 Functional Status None recorded. Mental Status None recorded. Family History Nothing Reported. Medical History No medical history recorded. Past Encounters Encounter ID Performer Location Encounter Start Date Encounter Closed Date Diagnosis/Indication Diagnosis SNOMED-CT Code Diagnosis ICD10 Code Diagnosis IMO Codes Diagnosis Note [id number] Aliya Srivastava MD [facility] [address] [phone] 04/18/2025 12:55:52 04/18/2025 20:54:28 Upper respiratory infection 45455409 J06.9 [id number] Health Concerns Section Related Observation LastModified by Organization Detai ls LastModified Time None Recorded Concern Status LastModified by Organization Details LastModified Time None Recorded Advance Directives Directive None Recorded Payers Insurance Date Sequence Insurance Name Policy Number Policy Peña Covered Member ID Peña Member ID Guarantor Name 04/18/2025 1 [facility] - DOS ON OR AFTER 2022 - DUAL ELIGIBLE - INTERMEDIATE OPTIONS AND ONE CARE (MEDICARE REPLACEMENT/AD VANTAGE - HMO) [place] Hummel [id number] [place] Hum[place] Notes Date Note Type Note Provider Name and Address Organization Details Recorded Time 04/18/2025 text/html ROS as noted in the HPI HPI: mbr with complaints of cough chest congestion pain yellow phlegm chills and weakness. denies any Sob/N/V requesting [facility] visit for evaluation ...................... ...................... ...................... ...................... ...................... ...................... ......... [facility] Nurse Triage Notes (Pao Wright): Chief Complaints: Chest Pain, Common Cold, Cough, Fever, Headache, Weakness PMH: Gastroesophageal Reflux Disease (GERD), Severe Persistent Mental Illness (SPMI) PMH Reviewed at 04/18/2025 - : Allergies Reviewed at 04/18/2025 - : Comments: HPI reviewed. Animal Husbandman Organization Information for Alison Galicia Business Legal Name: [employer] Address: [address] [place] [address], Weed Control Inspector: Bradly Ellsworth MD CLIA No.: [id number] Animal Husbandman POC Test Results from Alison Galicia [employer] Rapid COVID antigen (12:50:43) COVID: - Attachments uploaded as part of this test result can be found under Documents section. Rapid influenza antigen (12:50:44) Flu: - EKG (12:51:03) EKG test performed. Attachments uploaded as part of this test result can be found under Documents section. EKG (12:51:03) - This test has been updated by the head counselor, Grayson Alison at (04/18/2025 13:49:12). The changes are marked in bold. EKG test performed. Attachments uploaded as part of this test result can be found under Documents section. ...................... ...................... ...................... ...................... ...................... ...................... ......... Animal Husbandman Note From Alison Galicia: [facility] responds to the listed address for a 54yom who wants to be evaluated for COVID. Upon arrival, pt opens the door to the apartment for [facility]. He is generally well-appearing, smiling, and [...] treatment today. Ddx: COVID/flu, URI, bronchitis, pna [facility] obtains pt consent. Vital signs are [...] CMS is intact in all four extremities. [facility] contacts [facility] and discusses the above. [facility] orders one albuterol breathing treatment and lung sound reassessment. [facility] administers 2.5mg albuterol via nebulizer pipe at 8 lpm. Pt tolerates tx well and he reports a decreased wob. Lung sounds remained clear. [facility] contacts [facility] and [facility] prescribes an albuterol inhaler and a prednisone taper. [facility] orders 60mg prednisone PO for pt now and calls in the remaining taper to pt's pharmacy. [facility] administers 20mg prednisone x2 tablets and 5mg x4 tablets prednisone PO for pt and he takes them w/ a bottle of water. [facility] instructs pt to follow the instructions on how to take the medication on the bottle and to call for a reevaluation if his symptoms do not improve after taper and inhaler use. [facility] instructs t to seek emergency care if he gets a high fever, severe cp, sob, or uncontrolled n/v/d, or if his symptoms generally get worse. Pt gives his verbal understanding. [facility] is clear. Report completed by MARSHALL Galicia [id number]. [facility] Lab Orders: rapid SARS CoV 2 Ag, QL IA, respiratory specimen: Performed rapid flu (A+B): Performed electrocardiogram: Performed [facility] Medication Orders: albuterol sulfate 2.5 mg/3 mL (0.083 %) solution for nebulization: Performed prednisone 20 mg tablet: Performed ...................... ...................... ...................... ...................... ...................... ...................... ......... [facility] Consulted: Aliya Srivastava ...................... ...................... ...................... ...................... ...................... ...................... ......... Disposition: Fulfilled Aliya Srivastava MD [address] [place] [address],[address], [place], [address], CALIXTO MOBLEY 04/18/2025 13:55:26
== END 2025-06-23 13:50 | disposition home or self-care (01) ==
LOC: HO.HGI 12:58
PROVIDERS: PCP Internal Medicine; Visit Provider Nurse Practitioner Family
DX: D12.3 Benign neoplasm of transverse colon (principal); K21.9 Gastro-esophageal reflux disease without esophagitis
CPT/HCPCS: 99213

== ENCOUNTER → 2025-06-23 12:58 | Outpatient (BNVA) | payer OTHER, SELFPAY | PROVIDERS: PCP Internal Medicine; Visit Provider Nurse Practitioner Family | DX: D12.3 Benign neoplasm of transverse colon (principal); K21.9 Gastro-esophageal reflux disease without esophagitis; Z79.899 Other long term (current) drug therapy | CPT/HCPCS: 99212 ==